=== PATIENT | male | born 1990 ===

== ENCOUNTER 2018-06-01 18:59 | Inpatient (IN) | payer OTHER ==
--- NOTE | 2018-06-01 19:25 | PDOC ---
Rapid Medical Evaluation Time Seen by Provider: 06/01/18 19:22 Medical Evaluation: 06/01/18 19:22 I have performed a brief in-person evaluation of this patient. The patient presents with a chief complaint of: change in behavior x 4-5 days. As per suture gauger with patient patient is sleepy, no speaking, appears sleepy and drooling. States patient complained of headache yesterday. States no fever, chills or coughing noted Pertinent physical exam findings: in no apparent distress sitting with eyes closed, drooling, follow commands ambulatory with slow gait I have ordered the following: labs , iv The patient will proceed to the ED for further evaluation.
--- NOTE | 2018-06-01 20:36 | PDOC ---
Attending Attestation - HPI HPI: 06/01/18 20:37 The patient is a 27 year old male with a PMH of DM and autism, currently living in a [facility]dc presents to the ED unresponsive. As per the sister at bedside, the patient has been unresponsive for the past 4-5 days. Patient complained of a headache yesterday. Patients sister states she went to visit the patient yesterday and reports he also had a loss of appetite. Patient is usually alert and awake, and can have conversations at baseline. Allergies: NKA Past surgical history: None reported. Social history: No reported alcohol, drug or cigarette use. <Benita Mcmillan - Last Filed: 06/01/18 20:36> - Resident Resident Name: Lila Peñaloza - ED Attending Attestation I have performed the following: I have examined & evaluated the patient, The case was reviewed & discussed with the resident, I agree w/resident's findings & plan, Exceptions are as noted - Physicial Exam PE: 06/01/18 20:57 pt somnolent, but arousable to loud voice, nonverbal. head atraumatic. lungs clear bilaterally heart rrr no mrg abd soft nt nd. ext wwp no edema. no calf tendernes. no rash noted. spinal scar. skin warm and dry no rash. nuero sleeping but arousable. moves all four ext spontaneously. - Medical Decision Making 06/01/18 20:35 27 yo male with h/o autism dM here with AMS. pt living in fdc. history per family at side as pt nonverbal. per family he normal more awake and alert. has been complaining of a headache for last few days. no f/c that they are aware of. brought hin food the other day and he had no interest which is different for him. differential: infection such as uti, pna, ich, cva, hyperglycemia or dka, hyperosmolar hyperglycemia. plan labs cultures tox ekg ct head cxr and ua. iv hyration fingerstick at bedside. <Malina Dominguez - Last Filed: 06/01/18 21:01>
[2018-06-01] MEDS ORDERED: SODIUM CHLORIDE 0.9% 1000 ML INFUS.BAG IV ONE (21:01)
[2018-06-01 21:07] LABS: BASO % 0.6 % (0-2.0); EOS % 0.9 % (0-4.5); HEMATOCRIT 39.6 % (35.4-49); HEMOGLOBIN 13.6 GM/dL (11.7-16.9); LYMPH % 9.3 % (8-40); MCH 29.3 pg (25.7-33.7); MCHC 34.3 g/dl (32.0-35.9); MEAN CELL VOLUME 85.5 fl (80-96); MEAN PLT VOLUME 7.1 fl (7.5-11.1); MONO % 8.7 % (3.8-10.2); NEUT % 80.5 % (42.8-82.8); PLATELET COUNT 329 K/MM3 (134-434); RBC 4.63 M/mm3 (4.00-5.60); RDW 14.3 % (11.9-15.9); VENOUS PH 7.37 (7.32-7.42); VENOUS PO2 33.3 mmHg (28-48); WHITE BLOOD COUNT 15.1 K/mm3 (4.0-10.0)
--- NOTE | 2018-06-01 21:32 | PDOC ---
History of Present Illness - General Chief Complaint: Altered Mental Status Stated Complaint: ALTERED MENTAL,BODY PAINS Time Seen by Provider: 06/01/18 19:22 - History of Present Illness Initial Comments: Familia Allen is a 27yo man with a PMH of autism, DM, impulse control disorder who presents from his [place] [facility] with 4-5 days of progressive lethargy and unresponsiveness. His aid states that he has been much less energetic over the past few days, and he appeared to have difficulty swallowing his medication today. Otherwise, she is unaware of any specific symptoms. She does not believe he's had any fevers, chills, vomiting, or diarrhea but is not sure. Per his family, (sister, stepfather, and godmother) present in the ED, Familia is normally awake and responsive. His sister notes that he complained of headache when they were visiting yesterday, and he was only able to answer yes/ no questions rather than being more conversational as usual. She says that they always bring him a burger and chicken nuggets when they visit, but Familia had no interest in his burger yesterday. They are also unaware of any additional symptoms recently, but they do report that he appears significantly different than usual and much more fatigued and unresponsive than yesterday. Past History - Past Medical History Allergies/Adverse Reactions: Allergies Allergy/AdvReac Type Severity Reaction Status Date / Time No Known Allergies Allergy Verified 06/01/18 19:26 COPD: No Psychiatric Problems: Yes - Surgical History Neurologic Surgery: Yes - Suicide/Smoking/Psychosocial Hx Smoking History: Never smoked Review of Systems - Review of Systems Comments:: 06/01/18 21:58 Could not obtain *Physical Exam - Vital Signs Last Vital Signs Temp Pulse Resp BP Pulse Ox 98.4 F 88 16 123/75 98 06/01/18 19:21 06/01/18 19:21 06/01/18 19:21 06/01/18 19:21 06/01/18 19:21 - Physical Exam Comments: General: Moderate distress HEENT: EOMI, dry lips, yellow crusting around b/l nares Cards: RRR, no murmur appreciated Pulm: Comfortable on room ai Abd: Soft, nontender, nondistended Ext: Atraumatic. No LE edema. Moves all extremities Vasc: Extremities WWP. Skin: Normal color, no rashes or lesions Neuro: Sleepy. Arousable to stimuli but immediately sleeps. Nonverbal communication. Tremors in b/l hands. Stands w/ assistance. Moderate Sedation - Procedure Monitoring Vital Signs: Procedure Monitoring Vital Signs Temperature 98.4 F 06/01/18 19:21 Pulse Rate 88 06/01/18 19:21 Respiratory Rate 16 06/01/18 19:21 Blood Pressure 123/75 06/01/18 19:21 O2 Sat by Pulse Oximetry (%) 98 06/01/18 19:21 ED Treatment Course - LABORATORY CBC & Chemistry Diagram: 06/01/18 20:50 06/01/18 20:50 - ADDITIONAL ORDERS Additional order review: Laboratory Results 06/01/18 20:50 VBG pH 7.37 POC VBG pCO2 41.0 POC VBG pO2 33.3 Mixed VBG HCO3 23.2 06/01/18 20:50 RBC 4.63 MCV 85.5 MCHC 34.3 RDW 14.3 MPV 7.1 L Neutrophils % 80.5 Lymphocytes % 9.3 Monocytes % 8.7 Eosinophils % 0.9 Basophils % 0.6 - Medications Given in the ED: ED Medications Discontinued Medications Generic Name Dose Route Start Last Admin Trade Name Freq PRN Reason Stop Dose Admin Sodium Chloride 1,000 ml 06/01/18 21:01 06/01/18 21:12 Normal Saline - IV 06/01/18 21:02 1,000 ml ONCE ONE Administration Medical Decision Making - Medical Decision Making 06/01/18 21:31 Familia Allen is a 27yo man with a PMH of autism, DM, impulse control disorder who presents from his [place] [facility] with 4-5 days of progressive lethargy and unresponsiveness. Per his family, he is normally awake and responsive, but he is lethargic and difficulty to rouse on arrival in the ED. Only known symptom otherwise was the complaint of headache and lack of usual interest in food yesterday evening. - Broad differential. No known fevers, chills, focal infectious symptoms, or fall. No known ingestion. Consider sepsis, head injury, stroke, hyper/ hypoglycemia, DKA or hyperosmolic state, accidental medication overdose (on lithium and depakote) - CBC, chemistry, cultures, lactate, UA, UCx, lithium level, depakote level - IV placed in L AC by Dr Dominguez. Labs sent. 06/01/18 21:54 - Took patient to CT - Possible rigors observed (vs chronic tremors reported by family) 06/01/18 23:23 - Labs notable for WBC 15. UA appears negative - CT reviewed. No obvious abnormalities. Read pending - Empiric antibiotics ordered by Dr Dominguez. Cultures pending. - Microblog sent to hospitalist team for admission for additional management and workup. 06/02/18 00:42 - Second microblog sent - Sister left ED, requested to be called for any updates. Keri Allen, phone [phone] 06/02/18 00:55 - Spoke to Dr Pizano. Will admit to med/surg Seen and discussed with Dr Dominguez. Lila Peñaloza PGY1 *DC/Admit/Observation/Transfer Diagnosis at time of Disposition: Altered mental status - Discharge Dispostion Decision to Admit order: Yes - Referrals - Patient Instructions - Post Discharge Activity
[2018-06-01 22:01] LABS: PROTHROMBIN TIME (PATIENT) 11.8 SEC (9.7-13.0)
[2018-06-01 22:03] LABS: ACTIVATED PTT 24.8 SECONDS (25.2-36.5); ALK PHOS 114 U/L (45-117); ANION GAP 4 MMOL/L (8-16); BILIRUBIN,TOTAL 0.3 mg/dL (0.2-1); BLOOD UREA NITROGEN 23 mg/dL (7-18); CALCIUM 9.8 mg/dL (8.5-10.1); CHLORIDE 105 mmol/L (98-107); CO2 25 mmol/L (21-32); CREATININE 1.7 mg/dL (0.55-1.3); GLUCOSE,RANDOM 89 mg/dL (74-106); SGOT/AST 20 U/L (15-37); SGPT/ALT 31 U/L (13-61); SODIUM 135 mmol/L (136-145)
[2018-06-01 22:12] LABS: ACETONE SERUM NEGATIVE (NEGATIVE)
[2018-06-01] MEDS ORDERED: SODIUM CHLORIDE 0.9% 500 ML INFUS.BAG IV ONE (22:18)
[2018-06-01 22:39] LABS: URINE APPEARANCE CLEAR; URINE BILIRUBIN NEGATIVE (<2.0 mg/dL); URINE COLOR LTYELLOW; URINE GLUCOSE (UA) NEGATIVE (NEGATIVE); URINE KETONE NEGATIVE (NEGATIVE); URINE LEUK ESTERASE NEGATIVE (NEGATIVE); URINE NITRITE NEGATIVE (NEGATIVE); URINE PROTEIN 2+ (NEGATIVE); URINE UROBILINOGEN NEGATIVE mg/dL (0.2-1.0)
[2018-06-01 22:53] LABS: COCAINE, UR NEGATIVE ng/ml (CUTOFF=300); METHADONE, UR NEGATIVE ng/ml (CUTOFF=300); OPIATES, URI NEGATIVE ng/ml (CUTOFF=300); PHENCYCLIDINE,URINE NEGATIVE ng/ml (CUTOFF=25); URINE AMPHETAMINES NEGATIVE ng/ml (CUTOFF=500); URINE BARBITURATES NEGATIVE ng/ml (CUTOFF=200); URINE BENZODIAZEPINES NEGATIVE ng/ml (CUTOFF=200)
[2018-06-01] MEDS ORDERED: VANCOMYCIN 1 GM in D5W (PRE-DOCKED) 1,000 MG/250 ML IVPB ONE (22:55)
[2018-06-01] MEDS ORDERED: CEFTRIAXONE 2,000 MG in DEXTROSE 5%-WATER - 50 ML IVPB ONE (22:55)
[2018-06-01] MEDS ORDERED: CEFTRIAXONE 2 GM/100 ML BAG IVPB ONE (23:09)
[2018-06-01] MEDS ORDERED: VANCOMYCIN 1 GRAM (PRE-DOCKED) 1,000 MG/250 ML BAG IVPB ONE (23:09)
--- NOTE | 2018-06-02 01:26 | PN ---
Teaching Attending Note Name of Resident: Pravin Pizano ATTENDING PHYSICIAN STATEMENT I saw and evaluated the patient. I reviewed the resident's note and discussed the case with the resident. I agree with the resident's findings and plan as documented. SUBJECTIVE: Patient is a 27 year old man with a PMH of autism, scoliosis, surgery for scoliosis with vertebral hardware, DM, impulse control disorder who [facility]5 days of progressive lethargy and unresponsiveness. His aid states that he has been much less energetic over the past few days, and he appeared to have difficulty swallowing his medication today. Otherwise, she is unaware of any specific symptoms. She does not believe he's had any fevers, chills, vomiting, or diarrhea but is not sure. Per his family, (sister, stepfather, and godmother) he is normally awake and responsive. His sister notes that he complained of headache when they were visiting yesterday, and he was only able to answer yes/no questions rather than being more conversational as usual. She says that they always bring him a burger and chicken nuggets when they visit, but Familia had no interest in his burger yesterday. They are also unaware of any additional symptoms recently, but they do report that he appears significantly different than usual and much more fatigued and unresponsive than yesterday. OBJECTIVE: Lethargic and weak Vital Signs Period Temp Pulse Resp BP Sys/Schwartz Pulse Ox Last 24 Hr 97.9 F-98.4 F 73-88 16-18 122-123/75-82 98-100 HEENT: No Jaundice, eye redness or discharge, PERRLA, EOMI. Normocephalic, atraumatic. External ears are normal and hearing is grossly intact. No nasal discharge. Neck: Supple, nontender. No palpable adenopathy or thyromegaly. No JVD Chest: Good effort. Clear to auscultation and percussion. Heart: Regular. No S3, rub or murmur Abdomen: Not distended, soft, nontender and no HSM. No rebound or guarding. Normoactive bowel sounds. Ext: Peripheral pulses intact. No leg edema. Skin: Warm and dry. No petechiae, rash or ecchymosis. Neuro: Lethargic. Able to follow commands sluggishly. Oriented to person. CN 2- 12 grossly intact. Sensation grossly intact in all four extremities and DTR are symmetric. Abnormal Lab Results 06/01/18 06/01/18 06/01/18 20:50 20:50 20:50 WBC 15.1 H MPV 7.1 L Absolute Neuts (auto) 12.2 H PTT (Actin FS) 24.8 L Sodium 135 L Anion Gap 4 L BUN 23 H Creatinine 1.7 H Ur Specific [place] Urine Protein Valproic Acid 06/01/18 06/01/18 20:50 22:26 WBC MPV Absolute Neuts (auto) PTT (Actin FS) Sodium Anion Gap BUN Creatinine Ur Specific [place] 1.006 L Urine Protein 2+ H Valproic Acid 27.5 L ASSESSMENT AND PLAN: 1. Altered Mental Status - Etiology unclear. No acute abnormality on Head CT and on CXR. In view of leukocytosis, he needs a lumbar puncture to exclude meningitis. He has vertebral hardware, so will consult IR for lumbar puncture. Will empirically treat for meningitis with vancomycin and rocephin. Also, patient is on a lot psychoactive drugs and drug interaction/adverse effects may be a contributing factor to his AMS. Will hold some of his psychoactive drugs and do neurochecks and implement seizure precautions. [place] level pending. Consult neurology and ID. Gentle hydration with IV NS. 2. DM Reportedly used to be on metformin. Will implement sliding scale insulin regimen. Provide comprehensive diabetes care with patient teaching and counseling about the importance of adherence to prescribed diabetes regimen, euglycemia, eye care and foot care. 3. CKD? - Has proteinuria and isosthenuria. Check CPK. Will hydrate gently and avoid nephrotoxic agents such as NSAIDS, aminoglycosides, contrast dyes and certain Alternative medicine products. 4. Obesity - Will provide patient all the necessary assistance, counseling and positive reinforcement to facilitate weight loss. Consult primer inserting machine adjuster. 5. DVT prophylaxis - Heparin 5000u sq tid. 6. Advance directives - Full code
--- NOTE | 2018-06-02 01:54 | HP ---
CHIEF COMPLAINT: Lethargy PCP: @[facility] HISTORY OF PRESENT ILLNESS: The patient is a 27 yo m w/ PMH DM, Autism, behavior disorders who [facility] a [facility] due to 5 days of lethargy. The patient is unable to provide history, which was collected from his aide at bedside and the EMR. For the past 5 days, the patient has been more sleeping and less interactive. In addition to this, he has had a decrease appetite, decreased activity and difficulty swallowing his medications. These symptoms have become progressively worse and has been associated with LE weakness, which prompted his aide and his family to bring him to the ED for evaluation. Patient is bilingual (Malay, Tamaz[place]) and additional history may have been obtained by family. Per family, the patient also c/o headache for the past few days. The patient's aide denies fevers, chills, pain, rash or sick contacts in the home. Of note, the patient's neurologist (@[facility]) increased his Depakote from 250 BID to 500BID 1 month ago due to inability to sleep. Patient's Aides administer his medications and they endorse compliance. Contact information for patient's sister: Keri Allen [phone], ER course was notable for: (1) WBC 15.1 w/ elevated ANC (2) BUN 23, Cr. 1.7 (3) afebrile rectally (4) CT head negative Recent Travel: none PAST MEDICAL HISTORY: see HPI PAST SURGICAL HISTORY: none Social History: Smoking: denies Alcohol: denies Drugs: denies Family History: non-contributory Allergies No Known Allergies Allergy (Verified 06/01/18 19:26) HOME MEDICATIONS: REVIEW OF SYSTEMS unable to obtain PHYSICAL EXAMINATION Vital Signs - 24 hr 06/01/18 06/01/18 19:21 22:35 Temperature 98.4 F 97.9 F Pulse Rate 88 Pulse Rate [ 73 Apical] Respiratory 16 18 Rate Blood Pressure 123/75 Blood Pressure 122/82 [Right Arm] O2 Sat by Pulse 98 100 Oximetry (%) GENERAL: Patient lethargic, drowsy, rousable to verbal stimuli and easily rousable to physical stimuli. Patient able to follow commands in limited fashion and withdraws from pain. HEAD: Normal with no signs of trauma. EYES: Pupils equal, round and reactive to light. EARS, NOSE, THROAT: nares patent, oropharynx clear without exudates. Moist mucous membranes. Nasal passages crusted with mucus NECK: Normal range of motion, supple without lymphadenopathy, JVD, or masses. No nuchal rigidity felt, Brudzinsky sign negative, no neck stiffness. LUNGS: Breath sounds equal, clear to auscultation bilaterally. No wheezes, and no crackles. No accessory muscle use. HEART: Regular rate and rhythm, normal S1 and S2 without murmur, rub or gallop. ABDOMEN: Soft, nontender, not distended, normoactive bowel sounds, no guarding, no rebound, no masses. LOWER EXTREMITIES: 2+ pulses, warm, well-perfused. No calf tenderness. No peripheral edema. NEUROLOGICAL: unable to perform neuro exam 2/ patient status SKIN: Warm, dry, normal turgor, no rashes or lesions noted, normal capillary refill. Laboratory Results - last 24 hr 06/01/18 06/01/18 06/01/18 20:50 20:50 20:50 WBC 15.1 H RBC 4.63 Hgb 13.6 Hct 39.6 MCV 85.5 MCH 29.3 MCHC 34.3 RDW 14.3 Plt Count 329 MPV 7.1 L Absolute Neuts (auto) 12.2 H Neutrophils % 80.5 Lymphocytes % 9.3 Monocytes % 8.7 Eosinophils % 0.9 Basophils % 0.6 Nucleated RBC % 0 PT with INR INR PTT (Actin FS) VBG pH 7.37 POC VBG pCO2 41.0 POC VBG pO2 33.3 Mixed VBG HCO3 23.2 Sodium 135 L Potassium 5.0 Chloride 105 Carbon Dioxide 25 Anion Gap 4 L BUN 23 H Creatinine 1.7 H Creat Clearance w eGFR 47.89 Random Glucose 89 Specific [place] Lactic Acid Calcium 9.8 Total Bilirubin 0.3 AST 20 ALT 31 Alkaline Phosphatase 114 Total Protein 7.0 Albumin 4.0 Urine Color Urine Appearance Urine pH Ur Specific [place] Urine Protein Urine Glucose (UA) Urine Ketones Urine Blood Urine Nitrite Urine Bilirubin Urine Urobilinogen Ur Leukocyte Esterase Urine WBC (Auto) Urine RBC (Auto) Urine Butalbital Ur Butalbital Confirm Opiates Screen Urine Opiates Screen Meperidine Urine Normeperidine U Normeperidine GC/MS Urine Codeine U Codeine Confrm GC/MS Urine Morphine Morphine Confirm GC/MS Urine Hydrocodone Ur Hydrocodone (GC/MS) Urine Oxycodone Ur Oxycodone GC/MS Oxymorphone Confirm Urine Oxymorphone U Oxycodone/Oxymorphon Methadone Screen Ur Methadone Ur Methadone Confirm Ur Hydromorphone Ur Hydromorphone (GC/MS) Urine Propoxyphene U Propoxyphene/M GC/MS Barbiturate Screen Ur Barbiturates Screen Urine Barbiturates Valproic Acid Phencyclidine Screen Ur Phencyclidine (PCP) Ur PCP Confirm (GC/MS) Amphetamines Amphetamines Grp GC/MS Ur Amphetamines Screen Urine Amphetamine Ur Amphetamines, Quant Methamphetamine Methamphetamine GC/MS MDMA (Ecstasy) Screen Urine Amobarbital Ur Amobarbital GC/MS Urine Pentobarbital U Pentobarbital GC/MS Urine Phenobarbital U Phenobarbital GC/MS Urine Secobarbital U Secobarbital GC/MS Urine Alprazolam U OH-Alprazolam GC/MS Benzodiazepines Screen U Benzodiazepines Scrn Urine Clonazepam U 7-Amino Clonazep GC/MS Ur Nordiazepam Ur Nordiazepam GC/MS Flurazepam Flurazepam Confirm Lorazepam Urine Lorazepam Ur Oxazepam U Oxazepam Confm GC/MS Urine Temazepam Ur Temazepam (GC/MS) Urine Triazolam Ur Triazolam (GC/MS) Meperidine (GC/MS) Ur Meperidine Cocaine Screen Cocaine & Metabolite Urine Cocaine Benzoylecgonine Cannabinoids Urine Cannabinoids U Marijuana (THC) Screen Urine Marijuana (THC) Ethyl Alc Confirm Acetone, Qual Negative Influenza A (Rapid) Influenza B (Rapid) 06/01/18 06/01/18 06/01/18 20:50 20:50 20:50 WBC RBC Hgb Hct MCV MCH MCHC RDW Plt Count MPV Absolute Neuts (auto) Neutrophils % Lymphocytes % Monocytes % Eosinophils % Basophils % Nucleated RBC % PT with INR 11.80 INR 1.00 PTT (Actin FS) 24.8 L VBG pH POC VBG pCO2 POC VBG pO2 Mixed VBG HCO3 Sodium Potassium Chloride Carbon Dioxide Anion Gap BUN Creatinine Creat Clearance w eGFR Random Glucose Specific [place] Lactic Acid 0.8 Calcium Total Bilirubin AST ALT Alkaline Phosphatase Total Protein Albumin Urine Color Urine Appearance Urine pH Ur Specific [place] Urine Protein Urine Glucose (UA) Urine Ketones Urine Blood Urine Nitrite Urine Bilirubin Urine Urobilinogen Ur Leukocyte Esterase Urine WBC (Auto) Urine RBC (Auto) Urine Butalbital Ur Butalbital Confirm Opiates Screen Urine Opiates Screen Meperidine Urine Normeperidine U Normeperidine GC/MS Urine Codeine U Codeine Confrm GC/MS Urine Morphine Morphine Confirm GC/MS Urine Hydrocodone Ur Hydrocodone (GC/MS) Urine Oxycodone Ur Oxycodone GC/MS Oxymorphone Confirm Urine Oxymorphone U Oxycodone/Oxymorphon Methadone Screen Ur Methadone Ur Methadone Confirm Ur Hydromorphone Ur Hydromorphone (GC/MS) Urine Propoxyphene U Propoxyphene/M GC/MS Barbiturate Screen Ur Barbiturates Screen Urine Barbiturates Valproic Acid 27.5 L Phencyclidine Screen Ur Phencyclidine (PCP) Ur PCP Confirm (GC/MS) Amphetamines Amphetamines Grp GC/MS Ur Amphetamines Screen Urine Amphetamine Ur Amphetamines, Quant Methamphetamine Methamphetamine GC/MS MDMA (Ecstasy) Screen Urine Amobarbital Ur Amobarbital GC/MS Urine Pentobarbital U Pentobarbital GC/MS Urine Phenobarbital U Phenobarbital GC/MS Urine Secobarbital U Secobarbital GC/MS Urine Alprazolam U OH-Alprazolam GC/MS Benzodiazepines Screen U Benzodiazepines Scrn Urine Clonazepam U 7-Amino Clonazep GC/MS Ur Nordiazepam Ur Nordiazepam GC/MS Flurazepam Flurazepam Confirm Lorazepam Urine Lorazepam Ur Oxazepam U Oxazepam Confm GC/MS Urine Temazepam Ur Temazepam (GC/MS) Urine Triazolam Ur Triazolam (GC/MS) Meperidine (GC/MS) Ur Meperidine Cocaine Screen Cocaine & Metabolite Urine Cocaine Benzoylecgonine Cannabinoids Urine Cannabinoids U Marijuana (THC) Screen Urine Marijuana (THC) Ethyl Alc Confirm Acetone, Qual Influenza A (Rapid) Influenza B (Rapid) 06/01/18 06/01/18 06/01/18 22:11 22:26 22:26 WBC RBC Hgb Hct MCV MCH MCHC RDW Plt Count MPV Absolute Neuts (auto) Neutrophils % Lymphocytes % Monocytes % Eosinophils % Basophils % Nucleated RBC % PT with INR INR PTT (Actin FS) VBG pH POC VBG pCO2 POC VBG pO2 Mixed VBG HCO3 Sodium Potassium Chloride Carbon Dioxide Anion Gap BUN Creatinine Cancelled Creat Clearance w eGFR Random Glucose Specific [place] Cancelled Lactic Acid Calcium Total Bilirubin AST ALT Alkaline Phosphatase Total Protein Albumin Urine Color Ltyellow Urine Appearance Clear Urine pH 7.0 Ur Specific [place] 1.006 L Urine Protein 2+ H Urine Glucose (UA) Negative Urine Ketones Negative Urine Blood Negative Urine Nitrite Negative Urine Bilirubin Negative Urine Urobilinogen Negative Ur Leukocyte Esterase Negative Urine WBC (Auto) 1 Urine RBC (Auto) None Urine Butalbital Cancelled Ur Butalbital Confirm Cancelled Opiates Screen Urine Opiates Screen Cancelled Meperidine Cancelled Urine Normeperidine Cancelled U Normeperidine GC/MS Cancelled Urine Codeine Cancelled U Codeine Confrm GC/MS Cancelled Urine Morphine Cancelled Morphine Confirm GC/MS Cancelled Urine Hydrocodone Cancelled Ur Hydrocodone (GC/MS) Cancelled Urine Oxycodone Cancelled Ur Oxycodone GC/MS Cancelled Oxymorphone Confirm Cancelled Urine Oxymorphone Cancelled U Oxycodone/Oxymorphon Cancelled Methadone Screen Ur Methadone Cancelled Ur Methadone Confirm Cancelled Ur Hydromorphone Cancelled Ur Hydromorphone (GC/MS) Cancelled Urine Propoxyphene Cancelled U Propoxyphene/M GC/MS Cancelled Barbiturate Screen Ur Barbiturates Screen Cancelled Urine Barbiturates Cancelled Valproic Acid Phencyclidine Screen Ur Phencyclidine (PCP) Cancelled Ur PCP Confirm (GC/MS) Cancelled Amphetamines Cancelled Amphetamines Grp GC/MS Cancelled Ur Amphetamines Screen Urine Amphetamine Cancelled Ur Amphetamines, Quant Cancelled Methamphetamine Cancelled Methamphetamine GC/MS Cancelled MDMA (Ecstasy) Screen Urine Amobarbital Cancelled Ur Amobarbital GC/MS Cancelled Urine Pentobarbital Cancelled U Pentobarbital GC/MS Cancelled Urine Phenobarbital Cancelled U Phenobarbital GC/MS Cancelled Urine Secobarbital Cancelled U Secobarbital GC/MS Cancelled Urine Alprazolam Cancelled U OH-Alprazolam GC/MS Cancelled Benzodiazepines Screen U Benzodiazepines Scrn Cancelled Urine Clonazepam Cancelled U 7-Amino Clonazep GC/MS Cancelled Ur Nordiazepam Cancelled Ur Nordiazepam GC/MS Cancelled Flurazepam Cancelled Flurazepam Confirm Cancelled Lorazepam Cancelled Urine Lorazepam Cancelled Ur Oxazepam Cancelled U Oxazepam Confm GC/MS Cancelled Urine Temazepam Cancelled Ur Temazepam (GC/MS) Cancelled Urine Triazolam Cancelled Ur Triazolam (GC/MS) Cancelled Meperidine (GC/MS) Cancelled Ur Meperidine Cancelled Cocaine Screen Cocaine & Metabolite Cancelled Urine Cocaine Cancelled Benzoylecgonine Cancelled Cannabinoids Cancelled Urine Cannabinoids Cancelled U Marijuana (THC) Screen Urine Marijuana (THC) Cancelled Ethyl Alc Confirm Cancelled Acetone, Qual Influenza A (Rapid) Negative Influenza B (Rapid) Negative 06/01/18 22:38 WBC RBC Hgb Hct MCV MCH MCHC RDW Plt Count MPV Absolute Neuts (auto) Neutrophils % Lymphocytes % Monocytes % Eosinophils % Basophils % Nucleated RBC % PT with INR INR PTT (Actin FS) VBG pH POC VBG pCO2 POC VBG pO2 Mixed VBG HCO3 Sodium Potassium Chloride Carbon Dioxide Anion Gap BUN Creatinine Creat Clearance w eGFR Random Glucose Specific [place] Lactic Acid Calcium Total Bilirubin AST ALT Alkaline Phosphatase Total Protein Albumin Urine Color Urine Appearance Urine pH Ur Specific [place] Urine Protein Urine Glucose (UA) Urine Ketones Urine Blood Urine Nitrite Urine Bilirubin Urine Urobilinogen Ur Leukocyte Esterase Urine WBC (Auto) Urine RBC (Auto) Urine Butalbital Ur Butalbital Confirm Opiates Screen Negative Urine Opiates Screen Meperidine Urine Normeperidine U Normeperidine GC/MS Urine Codeine U Codeine Confrm GC/MS Urine Morphine Morphine Confirm GC/MS Urine Hydrocodone Ur Hydrocodone (GC/MS) Urine Oxycodone Ur Oxycodone GC/MS Oxymorphone Confirm Urine Oxymorphone U Oxycodone/Oxymorphon Methadone Screen Negative Ur Methadone Ur Methadone Confirm Ur Hydromorphone Ur Hydromorphone (GC/MS) Urine Propoxyphene U Propoxyphene/M GC/MS Barbiturate Screen Negative Ur Barbiturates Screen Urine Barbiturates Valproic Acid Phencyclidine Screen Negative Ur Phencyclidine (PCP) Ur PCP Confirm (GC/MS) Amphetamines Amphetamines Grp GC/MS Ur Amphetamines Screen Negative Urine Amphetamine Ur Amphetamines, Quant Methamphetamine Methamphetamine GC/MS MDMA (Ecstasy) Screen Negative Urine Amobarbital Ur Amobarbital GC/MS Urine Pentobarbital U Pentobarbital GC/MS Urine Phenobarbital U Phenobarbital GC/MS Urine Secobarbital U Secobarbital GC/MS Urine Alprazolam U OH-Alprazolam GC/MS Benzodiazepines Screen Negative U Benzodiazepines Scrn Urine Clonazepam U 7-Amino Clonazep GC/MS Ur Nordiazepam Ur Nordiazepam GC/MS Flurazepam Flurazepam Confirm Lorazepam Urine Lorazepam Ur Oxazepam U Oxazepam Confm GC/MS Urine Temazepam Ur Temazepam (GC/MS) Urine Triazolam Ur Triazolam (GC/MS) Meperidine (GC/MS) Ur Meperidine Cocaine Screen Negative Cocaine & Metabolite Urine Cocaine Benzoylecgonine Cannabinoids Urine Cannabinoids U Marijuana (THC) Screen Negative Urine Marijuana (THC) Ethyl Alc Confirm Acetone, Qual Influenza A (Rapid) Influenza B (Rapid) ASSESSMENT/PLAN: The patient is a 27 yo m w/ PMH NIDDM, autism, behavior disorder is brought into the ED from a [facility] due to lethargy and trouble swallowing. #Lethargy, decreased appetite, leukocytosis and trouble swallowing possibly 2/2 to polypharmacy, r/o meningitis -patient on several psychoactive drugs -depakote lvl low in ED, lithium lvl pending -Utox negative -LP unable to be performed 2/2 hardware in the spine from scoliosis sx -consider IR consult for LP -discussed the case w/ Dr. Valadez (neuro): meningitis less likely, polypharmacy more likely -ID consult (Dr. Bowman) placed -s/p 2g ceftriaxone and 1g vanco in ED -c/w ceftriaxone 2g daily -will defer further vanco dosing to ID -add on CPK -holding all home meds except for anticonvulsants; patient has never had a seizure #elevated creatinine 2/2 combo of NAZ/CKD -combo of dilute urine, proteinuria and elevated creatinine suggestive of CKD -no baseline Cr. available -NS @ 50 overnight -trend creatinine daily #NIDDM -BGM ACHS -ISS ACHS #FEN -NS @50 -lytes wnl -NPO while lethargic #Prophy -SCDs -holding chemoprophylaxis in event IR wants to perform procedure #Dispo -admit med surg -medications verified with [facility] paperwork Visit type - Emergency Visit Emergency Visit: Yes ED Registration Date: 06/02/18 Care time: The patient presented to the Emergency Department on the above date and was hospitalized for further evaluation of their emergent condition. - New Patient This patient is new to me today: Yes Date on this admission: 06/02/18 - Critical Care Critical Care patient: No
[2018-06-02] MEDS ORDERED: SODIUM CHLORIDE 1,000 ML IV SCH (02:00)
[2018-06-02 05:43] LABS: BASO % 0.5 % (0-2.0); EOS % 1.4 % (0-4.5); HEMATOCRIT 37.2 % (35.4-49); HEMOGLOBIN 12.4 GM/dL (11.7-16.9); LYMPH % 9.5 % (8-40); MCHC 33.4 g/dl (32.0-35.9); MEAN CELL VOLUME 86.9 fl (80-96); MEAN PLT VOLUME 7.1 fl (7.5-11.1); MONO % 10.9 % (3.8-10.2); NEUT % 77.7 % (42.8-82.8); PLATELET COUNT 290 K/MM3 (134-434); RBC 4.28 M/mm3 (4.00-5.60); RDW 14.4 % (11.9-15.9); WHITE BLOOD COUNT 13.6 K/mm3 (4.0-10.0)
[2018-06-02 06:03] LABS: INR 0.99 (0.83-1.09); PROTHROMBIN TIME (PATIENT) 11.7 SEC (9.7-13.0)
[2018-06-02 06:05] LABS: ACTIVATED PTT 28.2 SECONDS (25.2-36.5)
[2018-06-02 06:12] LABS: ALBUMIN 3.2 g/dl (3.4-5.0); ALK PHOS 94 U/L (45-117); ANION GAP 2 MMOL/L (8-16); BILIRUBIN,TOTAL 0.4 mg/dL (0.2-1); BLOOD UREA NITROGEN 21 mg/dL (7-18); CALCIUM 8.8 mg/dL (8.5-10.1); CHLORIDE 113 mmol/L (98-107); CO2 25 mmol/L (21-32); CREATININE 1.5 mg/dL (0.55-1.3); GLUCOSE,RANDOM 95 mg/dL (74-106); MAGNESIUM 2.7 mg/dL (1.8-2.4); PHOSPHOROUS 4.2 mg/dL (2.5-4.9); SGOT/AST 16 U/L (15-37); SGPT/ALT 23 U/L (13-61); SODIUM 140 mmol/L (136-145); TOT PROT 5.8 g/dl (6.4-8.2)
[2018-06-02] MEDS: INSULIN SLIDING SCALE (NOVOLOG) 1 VIAL SQ SCH ×4 (06:17→22:42)
[2018-06-02] MEDS ORDERED: DIVALPROEX SODIUM 500 MG TABLET E.C. ONE (09:06)
[2018-06-02] MEDS ORDERED: CEFTRIAXONE 2 GM/100 ML BAG IVPB ONE (09:07)
[2018-06-02] MEDS: CEFTRIAXONE 2 GM in DEXTROSE 5%-WATER 100 ML IVPB SCH (09:21)
[2018-06-02] MEDS: DIVALPROEX SODIUM 500 MG TABLET E.C. PO SCH ×2 (09:21→21:53)
[2018-06-02] MEDS ORDERED: TOPIRAMATE 100 MG TABLET PO SCH (10:00)
--- NOTE | 2018-06-02 11:20 | PN ---
Progress Note (short form) - Note Progress Note: ID CONSULT DICTATED 27 Y/O MALE PMH AUTISM ADMITTED WITH ALTERED MENTAL STATUS NOTED TO HAVE LEUKOCYTOSIS ? SOURCE AWAIT SEPSIS WORKUP AGREE WITH NEURO EVAL AND LP
--- NOTE | 2018-06-02 11:47 | CONS ---
DATE OF CONSULTATION: DATE OF DICTATION: 06/02/2018 HISTORY: The patient is a 27-year-old male with a history of autism who is evaluated for altered mental status. History was obtained from the chart as well as family members present at the time of the examination. [facility] in a [facility]. They report that over the past 4-5 days he has had increasing lethargy and somnolence. He had decreased oral intake. At one point there was a report that he complained of headache. He was brought to the emergency room where the patient was noted to be confused. He was afebrile; however, white blood cell count was elevated at 15,000. Cultures were obtained. He was empirically treated with ceftriaxone and vancomycin. Caretakers report that his mental status is a departure from his baseline. He had no focal complaint. No reports of photophobia or neck rigidity. No reported fever or chills. No reports of labored breathing, cough, sputum production, vomiting, diarrhea, or grossly purulent urine. He does have a rash on the left side of his face for which he was seen by airplane pilot helper and prescribed doxycycline and topical medication. PAST MEDICAL HISTORY: Positive for diabetes mellitus, autism, scoliosis. PAST SURGICAL HISTORY: Status post spinal surgery with Mccauley rods. ALLERGIES: No known allergies. MEDICATIONS: Include Depakote, Topamax, Norvasc. SOCIAL HISTORY: He resides in a [facility]. He is normally awake, alert, conversant, ambulatory. No active tobacco or alcohol use. No known risk factors for HIV. SYSTEMS REVIEW: Neurologic: As per HPI. Cardiac: Negative chest pain or palpitations. Respiratory: Negative cough or sputum production. Gastrointestinal: Negative vomiting or diarrhea. Genitourinary: Negative for urinary tract infection. LABORATORY DATA: White count 15.1, hematocrit 37.2, platelet count 290, BUN 21, creatinine 1.5. Liver enzymes normal. Urinalysis: 1 white cell. Influenza swab negative. Toxicology screen negative. CAT scan of the head negative for acute infarct or bleed. Blood and urine cultures are pending. PHYSICAL EXAMINATION: General: On examination, he is awake; however, he is confused. Exam is limited. Vital Signs: Temperature 98.1, blood pressure 126/97, pulse 85 and regular, respirations 20 per minute. Skin: There is a papular rash present on the left side of the face, forehead, and mcdonald area. HEENT: Sclerae anicteric. Oropharynx, negative injection. Neck: Supple. No palpable adenopathy. Heart: S1, S2. Lungs: Grossly clear. Abdomen: Obese, soft, nontender. Extremities: Negative for edema. Skin: No rashes noted. IMPRESSION: A 27-year-old male with a history of autism admitted with altered mental status noted to have elevated white blood cell count. PLAN: Etiology of altered mentation and leukocytosis not clear. Initial sepsis workup unrevealing. Agree with Neurology evaluation and LP in light of altered mentation. Thank you for the kind referral. PAUL CHONG M.D. [id number]
[2018-06-02 13:03] VITALS: BMI 31.6
--- NOTE | 2018-06-02 13:53 | PN ---
Physical Exam: SUBJECTIVE: Patient seen and examined at bedside this morning. He is minimally responsive. He endorses headache, and chills. Per his health aide at bedside, his appetite has been severely diminished. OBJECTIVE: Vital Signs Period Temp Pulse Resp BP Sys/Schwartz Pulse Ox Last 24 Hr 97.9 F-98.5 F 64-88 16-20 116-143/62-97 95-100 GENERAL: The patient is sleepy, shivering, minimally able to follow commands. HEAD: Normocephalic, atraumatic. EYES: PERRL, extraocular movements intact, sclera anicteric. ENT: Oropharynx clear without exudates, dry mucous membranes. NECK: Supple without lymphadenopathy LUNGS: Breath sounds equal, clear to auscultation bilaterally, no wheezes, no crackles, no accessory muscle use. HEART: Regular rate and rhythm, S1, S2 without murmur, rub or gallop. ABDOMEN: Obese. Soft, nontender to light and deep palpation, nondistended. Normoactive bowel sounds, X4 quadrants. No guarding, no rebound tenderness. EXTREMITIES: 2+ radial, dorsalis pedis pulses bilaterally. Warm, well-perfused, no lower extremity edema bilaterally. NEUROLOGICAL: Patient freely moves all 4 extremities, strength 5/5 bilateral upper and lower extremities. No gross focal deficits. SKIN: Warm, dry. Laboratory Results - last 24 hr 06/01/18 06/01/18 06/01/18 22:11 22:26 22:26 WBC RBC Hgb Hct MCV MCH MCHC RDW Plt Count MPV Absolute Neuts (auto) Neutrophils % Lymphocytes % Monocytes % Eosinophils % Basophils % Nucleated RBC % PT with INR INR PTT (Actin FS) VBG pH POC VBG pCO2 POC VBG pO2 Mixed VBG HCO3 Sodium Potassium Chloride Carbon Dioxide Anion Gap BUN Creatinine Cancelled Creat Clearance w eGFR POC Glucometer Random Glucose Specific Parrish Cancelled Lactic Acid Calcium Phosphorus Magnesium Total Bilirubin AST ALT Alkaline Phosphatase Creatine Kinase Creatine Kinase Index CK-MB (CK-2) Total Protein Albumin Urine Color Ltyellow Urine Appearance Clear Urine pH 7.0 Ur Specific Parrish 1.006 L Urine Protein 2+ H Urine Glucose (UA) Negative Urine Ketones Negative Urine Blood Negative Urine Nitrite Negative Urine Bilirubin Negative Urine Urobilinogen Negative Ur Leukocyte Esterase Negative Urine WBC (Auto) 1 Urine RBC (Auto) None Urine Butalbital Cancelled Ur Butalbital Confirm Cancelled Opiates Screen Urine Opiates Screen Cancelled Meperidine Cancelled Urine Normeperidine Cancelled U Normeperidine GC/MS Cancelled Urine Codeine Cancelled U Codeine Confrm GC/MS Cancelled Urine Morphine Cancelled Morphine Confirm GC/MS Cancelled Urine Hydrocodone Cancelled Ur Hydrocodone (GC/MS) Cancelled Urine Oxycodone Cancelled Ur Oxycodone GC/MS Cancelled Oxymorphone Confirm Cancelled Urine Oxymorphone Cancelled U Oxycodone/Oxymorphon Cancelled Methadone Screen Ur Methadone Cancelled Ur Methadone Confirm Cancelled Ur Hydromorphone Cancelled Ur Hydromorphone (GC/MS) Cancelled Urine Propoxyphene Cancelled U Propoxyphene/M GC/MS Cancelled Barbiturate Screen Ur Barbiturates Screen Cancelled Urine Barbiturates Cancelled Valproic Acid Phencyclidine Screen Ur Phencyclidine (PCP) Cancelled Ur PCP Confirm (GC/MS) Cancelled Amphetamines Cancelled Amphetamines Grp GC/MS Cancelled Ur Amphetamines Screen Urine Amphetamine Cancelled Ur Amphetamines, Quant Cancelled Methamphetamine Cancelled Methamphetamine GC/MS Cancelled MDMA (Ecstasy) Screen Urine Amobarbital Cancelled Ur Amobarbital GC/MS Cancelled Urine Pentobarbital Cancelled U Pentobarbital GC/MS Cancelled Urine Phenobarbital Cancelled U Phenobarbital GC/MS Cancelled Urine Secobarbital Cancelled U Secobarbital GC/MS Cancelled Urine Alprazolam Cancelled U OH-Alprazolam GC/MS Cancelled Benzodiazepines Screen U Benzodiazepines Scrn Cancelled Urine Clonazepam Cancelled U 7-Amino Clonazep GC/MS Cancelled Ur Nordiazepam Cancelled Ur Nordiazepam GC/MS Cancelled Flurazepam Cancelled Flurazepam Confirm Cancelled Lorazepam Cancelled Urine Lorazepam Cancelled Ur Oxazepam Cancelled U Oxazepam Confm GC/MS Cancelled Urine Temazepam Cancelled Ur Temazepam (GC/MS) Cancelled Urine Triazolam Cancelled Ur Triazolam (GC/MS) Cancelled Meperidine (GC/MS) Cancelled Ur Meperidine Cancelled Cocaine Screen Cocaine & Metabolite Cancelled Urine Cocaine Cancelled Benzoylecgonine Cancelled Cannabinoids Cancelled Urine Cannabinoids Cancelled U Marijuana (THC) Screen Urine Marijuana (THC) Cancelled Ethyl Alc Confirm Cancelled Acetone, Qual Influenza A (Rapid) Negative Influenza B (Rapid) Negative 06/01/18 06/02/18 06/02/18 22:38 03:19 03:19 WBC RBC Hgb Hct MCV MCH MCHC RDW Plt Count MPV Absolute Neuts (auto) Neutrophils % Lymphocytes % Monocytes % Eosinophils % Basophils % Nucleated RBC % PT with INR INR PTT (Actin FS) VBG pH POC VBG pCO2 POC VBG pO2 Mixed VBG HCO3 Sodium Potassium Chloride Carbon Dioxide Anion Gap BUN Creatinine Creat Clearance w eGFR POC Glucometer Random Glucose Specific Parrish Lactic Acid 0.6 Calcium Phosphorus Magnesium Total Bilirubin AST ALT Alkaline Phosphatase Creatine Kinase 226 Creatine Kinase Index 1.9 CK-MB (CK-2) 4.5 H Total Protein Albumin Urine Color Urine Appearance Urine pH Ur Specific Parrish Urine Protein Urine Glucose (UA) Urine Ketones Urine Blood Urine Nitrite Urine Bilirubin Urine Urobilinogen Ur Leukocyte Esterase Urine WBC (Auto) Urine RBC (Auto) Urine Butalbital Ur Butalbital Confirm Opiates Screen Negative Urine Opiates Screen Meperidine Urine Normeperidine U Normeperidine GC/MS Urine Codeine U Codeine Confrm GC/MS Urine Morphine Morphine Confirm GC/MS Urine Hydrocodone Ur Hydrocodone (GC/MS) Urine Oxycodone Ur Oxycodone GC/MS Oxymorphone Confirm Urine Oxymorphone U Oxycodone/Oxymorphon Methadone Screen Negative Ur Methadone Ur Methadone Confirm Ur Hydromorphone Ur Hydromorphone (GC/MS) Urine Propoxyphene U Propoxyphene/M GC/MS Barbiturate Screen Negative Ur Barbiturates Screen Urine Barbiturates Valproic Acid Phencyclidine Screen Negative Ur Phencyclidine (PCP) Ur PCP Confirm (GC/MS) Amphetamines Amphetamines Grp GC/MS Ur Amphetamines Screen Negative Urine Amphetamine Ur Amphetamines, Quant Methamphetamine Methamphetamine GC/MS MDMA (Ecstasy) Screen Negative Urine Amobarbital Ur Amobarbital GC/MS Urine Pentobarbital U Pentobarbital GC/MS Urine Phenobarbital U Phenobarbital GC/MS Urine Secobarbital U Secobarbital GC/MS Urine Alprazolam U OH-Alprazolam GC/MS Benzodiazepines Screen Negative U Benzodiazepines Scrn Urine Clonazepam U 7-Amino Clonazep GC/MS Ur Nordiazepam Ur Nordiazepam GC/MS Flurazepam Flurazepam Confirm Lorazepam Urine Lorazepam Ur Oxazepam U Oxazepam Confm GC/MS Urine Temazepam Ur Temazepam (GC/MS) Urine Triazolam Ur Triazolam (GC/MS) Meperidine (GC/MS) Ur Meperidine Cocaine Screen Negative Cocaine & Metabolite Urine Cocaine Benzoylecgonine Cannabinoids Urine Cannabinoids U Marijuana (THC) Screen Negative Urine Marijuana (THC) Ethyl Alc Confirm Acetone, Qual Influenza A (Rapid) Influenza B (Rapid) 06/02/18 06/02/18 06/02/18 05:20 05:20 05:20 WBC 13.6 H RBC 4.28 Hgb 12.4 Hct 37.2 MCV 86.9 MCH 29.0 MCHC 33.4 RDW 14.4 Plt Count 290 MPV 7.1 L Absolute Neuts (auto) 10.6 H Neutrophils % 77.7 Lymphocytes % 9.5 Monocytes % 10.9 H Eosinophils % 1.4 Basophils % 0.5 Nucleated RBC % 0 PT with INR 11.70 INR 0.99 PTT (Actin FS) 28.2 VBG pH POC VBG pCO2 POC VBG pO2 Mixed VBG HCO3 Sodium 140 Potassium 5.0 Chloride 113 H Carbon Dioxide 25 Anion Gap 2 L BUN 21 H Creatinine 1.5 H Creat Clearance w eGFR 55.33 POC Glucometer Random Glucose 95 Specific Parrish Lactic Acid Calcium 8.8 Phosphorus 4.2 Magnesium 2.7 H Total Bilirubin 0.4 AST 16 ALT 23 Alkaline Phosphatase 94 Creatine Kinase Creatine Kinase Index CK-MB (CK-2) Total Protein 5.8 L Albumin 3.2 L Urine Color Urine Appearance Urine pH Ur Specific Parrish Urine Protein Urine Glucose (UA) Urine Ketones Urine Blood Urine Nitrite Urine Bilirubin Urine Urobilinogen Ur Leukocyte Esterase Urine WBC (Auto) Urine RBC (Auto) Urine Butalbital Ur Butalbital Confirm Opiates Screen Urine Opiates Screen Meperidine Urine Normeperidine U Normeperidine GC/MS Urine Codeine U Codeine Confrm GC/MS Urine Morphine Morphine Confirm GC/MS Urine Hydrocodone Ur Hydrocodone (GC/MS) Urine Oxycodone Ur Oxycodone GC/MS Oxymorphone Confirm Urine Oxymorphone U Oxycodone/Oxymorphon Methadone Screen Ur Methadone Ur Methadone Confirm Ur Hydromorphone Ur Hydromorphone (GC/MS) Urine Propoxyphene U Propoxyphene/M GC/MS Barbiturate Screen Ur Barbiturates Screen Urine Barbiturates Valproic Acid Phencyclidine Screen Ur Phencyclidine (PCP) Ur PCP Confirm (GC/MS) Amphetamines Amphetamines Grp GC/MS Ur Amphetamines Screen Urine Amphetamine Ur Amphetamines, Quant Methamphetamine Methamphetamine GC/MS MDMA (Ecstasy) Screen Urine Amobarbital Ur Amobarbital GC/MS Urine Pentobarbital U Pentobarbital GC/MS Urine Phenobarbital U Phenobarbital GC/MS Urine Secobarbital U Secobarbital GC/MS Urine Alprazolam U OH-Alprazolam GC/MS Benzodiazepines Screen U Benzodiazepines Scrn Urine Clonazepam U 7-Amino Clonazep GC/MS Ur Nordiazepam Ur Nordiazepam GC/MS Flurazepam Flurazepam Confirm Lorazepam Urine Lorazepam Ur Oxazepam U Oxazepam Confm GC/MS Urine Temazepam Ur Temazepam (GC/MS) Urine Triazolam Ur Triazolam (GC/MS) Meperidine (GC/MS) Ur Meperidine Cocaine Screen Cocaine & Metabolite Urine Cocaine Benzoylecgonine Cannabinoids Urine Cannabinoids U Marijuana (THC) Screen Urine Marijuana (THC) Ethyl Alc Confirm Acetone, Qual Influenza A (Rapid) Influenza B (Rapid) Active Medications Generic Name Dose Route Start Last Admin Trade Name Kinq PRN Reason Stop Dose Admin Divalproex Sodium 500 mg 06/02/18 10:00 06/02/18 09:21 Depakote - PO 500 mg BID EZRA Administration Sodium Chloride 1,000 mls @ 50 mls/hr 06/02/18 02:00 06/02/18 03:00 Normal Saline - IV 06/02/18 21:59 50 mls/hr ASDIR EZRA Administration Ceftriaxone Sodium 2 gm/ 100 mls @ 200 mls/hr 06/02/18 10:00 06/02/18 09:21 Dextrose IVPB 200 mls/hr DAILY EZRA Administration Insulin Aspart 1 vial 06/02/18 07:00 06/02/18 11:19 Novolog Vial Sliding Scale - SQ Not Given ACHS EZRA Protocol Topiramate 900 mg 06/02/18 10:00 Topamax - PO BID EZRA ASSESSMENT/PLAN: Patient is a 27 year old male with history of autism, diabetes mellitus, presents from [facility] with complaint of lethargy ongoign for past 5 days prior to presentation. Acute metabolic encephalopathy -Concern for polypharmacy, vs. meningitis -Valproic acid level 27.5, [place] level pending. -Urine toxicology negative -Neurology consult (Dr. Valadez) appreciated -IR consulted for lumbar puncture. Will discuss with anasthesiology regarding sedation for procedure. -ID consult (Dr. Bowman) appreciated. -Ceftriaxone 2 grams IV daily -Depakote 500mg PO BID -Topamax 900mg PO BID Diabetes mellitus, not insulin dependent -Holding home Metformin -Insulin sliding scale ACHS -Fingerstick blood glucose monitoring ACHS Acute kidney injury vs. CKD -Improving; BUN 21 (23 yesterday), Cr 1.5 (1.7 yesterday) -Uncertain baseline Creatinine -Folow CPK -Gentle hydration with IV normal saline at 50mL/ hour -Follow CMP FEN -IV normal saline at 50mL/ hour -Within normal limits, follow CMP -NPO pending IR lumbar puncture Prophylaxis -Holding chemical anticoagulation pending IR lumbar puncture Disposition -Continue care in medical- surgical floor Visit type - Emergency Visit Emergency Visit: Yes ED Registration Date: 06/02/18 Care time: The patient presented to the Emergency Department on the above date and was hospitalized for further evaluation of their emergent condition. - New Patient This patient is new to me today: Yes Date on this admission: 06/02/18 - Critical Care Critical Care patient: No - Discharge Referral Referred to [facility] Med P.C.: No
--- NOTE | 2018-06-02 16:12 | PN ---
Teaching Attending Note Name of Resident: Jim Lunsford ATTENDING PHYSICIAN STATEMENT I saw and evaluated the patient. I reviewed the resident's note and discussed the case with the resident. I agree with the resident's findings and plan as documented. SUBJECTIVE:said no to having CP, LUTZ, eye sensitivity to light as per aid in the room he was c/o LUTZ earlier today but has since resolved and has had no complaints. she said he is close to baseline but noted to be less verbal. states he been acting "off" since his medications were adjusted a few weeks ago. she said she knows 2 were increased but does not recall which medications and indication for adjustment at baseline he is able to have conversation but needs to be prompted and answers in 1 or 2 word sentences. is able to perform his own ADL's OBJECTIVE: Last Vital Signs Temp Pulse Resp BP Pulse Ox 98.5 F 86 18 143/62 95 06/02/18 12:46 06/02/18 12:46 06/02/18 12:46 06/02/18 12:46 06/02/18 12:46 General NAD CV S1 S2 RRR no m/r/g Lungs CTA anteriorly Neuro no nuchal rigidity. refused further neurological testing ASSESSMENT AND PLAN: 27yo M with PMH Autism, scoliosis, and DM presented to the ER wtih progressively worsening lethargy and LUTZ 1. Altered Mental Status - possible polypharmacy vs menningitis. pt is on very high doses of topamax which is known to have mental slowing. unclear reason for this dosing. will need to verify medications and indications. pt has clinically improved although not at baseline. will treat empirically for menningitis. plan for IR guided LP in AM. droplet precautions. Ceftriaxone/vanco day 2. neuro and ID on board. utox negative/flu negative/Head CT negative 2. NAZ- possible dehydration. cont IVF. trend labs. 3. DM hold oral agents. iss and BGM 4. DVT prophylaxis - Heparin 5000u sq tid.
--- NOTE | 2018-06-02 17:29 | CON.NEURO ---
Consult - Alcohol/Substance Use Hx Alcohol Use: No - Smoking History Smoking history: Never smoked Have you smoked in the past 12 months: No Home Medications - Allergies Allergies/Adverse Reactions: Allergies Allergy/AdvReac Type Severity Reaction Status Date / Time No Known Allergies Allergy Verified 06/01/18 19:26 - Home Medications Home Medications: Ambulatory Orders Chlorpromazine HCl 200 mg PO BID 06/02/18 Divalproex [Depakote -] 500 mg PO BID 06/02/18 [place] Carbonate [Eskalith -] 900 mg PO AM 06/02/18 [place] Carbonate [Lithobid] 1,200 mg PO HS 06/02/18 Metformin HCl [Metformin HCl ER] 500 mg PO DAILY 06/02/18 Topiramate 900 mg PO BID 06/02/18 traZODone HCL [Trazodone HCl] 100 mg PO HS 06/02/18 Physical Exam-Neuro Vital Signs: Vital Signs Temperature 98.5 F 06/02/18 12:46 Pulse Rate 86 06/02/18 12:46 Respiratory Rate 18 06/02/18 12:46 Blood Pressure 143/62 06/02/18 12:46 O2 Sat by Pulse Oximetry (%) 95 06/02/18 12:46 Labs: CBC, BMP 06/02/18 05:20 06/02/18 05:20 INR, PTT INR 0.99 (0.83-1.09) 06/02/18 05:20 Assessment/Plan CC Lethagy , agitation and tremors HPI 27 year old male history of Autism, behavior disorder, DM. He lives in a care home, he has not been participating in group activity. His home care manager denies any high grade fever, He was complaining of headahce. Patient found to have high wbc, and he has spinal surgery done10 years ago and has hard burks in spine for scoliosis. Patient is seeing psychiatrist for behavior disorder. His depaktoe was increased from 250 mg po bid recently due to insomnia. Patient also takes Li and Topamax. I spoke to two sister at bedside and hospice care sales consultant. Patient spinal tap is planned for tomorrow under anesthesia and IR. Past Medical History as above PAST SURGICAL HISTORY: Scoliosis surgery in past Social History: Smoking: denies Alcohol: denies Drugs: denies Family History: non-contributory Allergies No Known Allergies Allergy (Verified 06/01/18 19:26) HOME MEDICATIONS: Li, Depakote 500 mg po bid and topamax 900 mg po bid NEUROLOGICAL EXAMINATION Alert follow command, patient is eating and able to follow command no neck stiffness no face asymmetry, pupils reactive moving all extremity CT head is normal Assessment/Plan 27 year old male history of Autism, spinal surgery for scoliosis. Patient came with lethargy and agitation . Patient is on very high dose of Topamax 900 mgp o bid, depakote 500 mg po bid and Li.CLinically suspected meningitis vs Poly pharmacy Plan: concur with stopping Li and spinal tap for rule out meningitis - suggest to reduce topamax to 200 mg po bid - spinal tap schedule for tomorrow, consider psych consult after spinal tap - will continue to follow up Thanking you so much Luis Valadez MD
[2018-06-02] MEDS ORDERED: LORazepam 2 MG/ML SDV VIAL IM ONE (21:45)
[2018-06-03] MEDS: TOPIRAMATE 100 MG TABLET PO SCH ×4 (00:57→22:07)
[2018-06-03] MEDS ORDERED: LORazepam 2 MG/ML SDV VIAL IM ONE (01:00)
[2018-06-03] MEDS ORDERED: LORazepam 2 MG/ML SDV VIAL IVPUSH ONE (03:29)
[2018-06-03] MEDS: INSULIN SLIDING SCALE (NOVOLOG) 1 VIAL SQ SCH ×4 (06:14→22:06)
[2018-06-03 08:04] LABS: HEMATOCRIT 38.9 % (35.4-49); HEMOGLOBIN 13.2 GM/dL (11.7-16.9); MCH 29.5 pg (25.7-33.7); MCHC 33.9 g/dl (32.0-35.9); MEAN CELL VOLUME 87.1 fl (80-96); MEAN PLT VOLUME 7.6 fl (7.5-11.1); PLATELET COUNT 317 K/MM3 (134-434); RBC 4.47 M/mm3 (4.00-5.60); RDW 14.7 % (11.9-15.9); WHITE BLOOD COUNT 12.7 K/mm3 (4.0-10.0)
[2018-06-03 09:10] LABS: ALBUMIN 3.6 g/dl (3.4-5.0); ALK PHOS 134 U/L (45-117); ANION GAP 6 MMOL/L (8-16); BILIRUBIN,TOTAL 0.2 mg/dL (0.2-1); BLOOD UREA NITROGEN 13 mg/dL (7-18); CALCIUM 9.2 mg/dL (8.5-10.1); CHLORIDE 122 mmol/L (98-107); CO2 21 mmol/L (21-32); CREATININE 1.5 mg/dL (0.55-1.3); GLUCOSE,RANDOM 113 mg/dL (74-106); POTASSIUM 5.7 mmol/L (3.5-5.1); SGOT/AST 20 U/L (15-37); SGPT/ALT 28 U/L (13-61); SODIUM 149 mmol/L (136-145)
[2018-06-03] MEDS ORDERED: DEXTROSE 5%-WATER 100 ML IVPB ONE (09:37)
[2018-06-03] MEDS: CEFTRIAXONE 2 GM in DEXTROSE 5%-WATER 100 ML IVPB SCH (09:58)
--- NOTE | 2018-06-03 11:28 | PN ---
Physical Exam: SUBJECTIVE: Patient seen and examined at bedside this morning. Overnight he was agitated requiring two doses Ativan 0.5mg IV, and one dose of Atival 2.0mg IV for sedation. He is currently under constant supervision. Patent does not endorse acute new complaints today. Patient's sister at bedside notes that he does not like hospitals, and shakes when he is frightened. OBJECTIVE: Vital Signs Period Temp Pulse Resp BP Sys/Schwartz Pulse Ox Last 24 Hr 98.2 F-98.6 F 80-92 18-22 139-150/62-94 95-96 GENERAL: The patient is awake, tremulous, following commands. HEAD: Normocephalic, atraumatic. No nuchal rigidity. Negative Kernig, Brudzinsky sign. EYES: PERRL, extraocular movements intact, sclera anicteric. ENT: Oropharynx clear without exudates, dry mucous membranes. NECK: Supple without lymphadenopathy LUNGS: Breath sounds equal, clear to auscultation bilaterally, no wheezes, no crackles, no accessory muscle use. HEART: Regular rate and rhythm, S1, S2 without murmur, rub or gallop. ABDOMEN: Obese. Soft, nontender to light and deep palpation, nondistended. Normoactive bowel sounds, X4 quadrants. No guarding, no rebound tenderness. EXTREMITIES: 2+ radial, dorsalis pedis pulses bilaterally. Warm, well-perfused, no lower extremity edema bilaterally. NEUROLOGICAL: Patient freely moves all 4 extremities, strength 5/5 bilateral upper and lower extremities. No gross focal deficits. SKIN: Warm, dry. Laboratory Results - last 24 hr 06/02/18 06/02/18 06/03/18 16:45 22:36 05:25 WBC 12.7 H RBC 4.47 Hgb 13.2 Hct 38.9 MCV 87.1 MCH 29.5 MCHC 33.9 RDW 14.7 Plt Count 317 MPV 7.6 Sodium Potassium Chloride Carbon Dioxide Anion Gap BUN Creatinine Creat Clearance w eGFR POC Glucometer 109 103 Random Glucose Calcium Total Bilirubin AST ALT Alkaline Phosphatase Total Protein Albumin 06/03/18 06/03/18 05:25 06:11 WBC RBC Hgb Hct MCV MCH MCHC RDW Plt Count MPV Sodium 149 H Potassium 5.7 H Chloride 122 H Carbon Dioxide 21 Anion Gap 6 L BUN 13 Creatinine 1.5 H Creat Clearance w eGFR 55.33 POC Glucometer 110 Random Glucose 113 H Calcium 9.2 Total Bilirubin 0.2 AST 20 ALT 28 Alkaline Phosphatase 134 H Total Protein 7.0 Albumin 3.6 Active Medications Generic Name Dose Route Start Last Admin Trade Name Edgar PRN Reason Stop Dose Admin Divalproex Sodium 500 mg 06/02/18 10:00 06/02/18 21:53 Depakote - PO 500 mg BID EZRA Administration Ceftriaxone Sodium 2 gm/ 100 mls @ 200 mls/hr 06/02/18 10:00 06/03/18 09:58 Dextrose IVPB 200 mls/hr DAILY EZRA Administration Insulin Aspart 1 vial 06/02/18 07:00 06/03/18 06:14 Novolog Vial Sliding Scale - SQ Not Given ACHS EZRA Protocol Topiramate 200 mg 06/02/18 22:00 06/03/18 01:29 Topamax - PO 200 mg BID EZRA Administration ASSESSMENT/PLAN: Patient is a 27 year old male with history of autism, diabetes mellitus, presents from [facility] with complaint of lethargy ongoign for past 5 days prior to presentation. Acute toxic metabolic encephalopathy -Likely secondary to Lithiuim toxicity. [place] level 4.0 -Nephrology consult (Dr. Kat) appreciated -Hemodialysis was discussed with patient's family at bedside. They would like to wait for repeat [place] level. -Repeat [place] level STAT. Follow BMP -EKG shows normal sinus rhythm. Qtc 430. Transfer to Telemetry floor for cardiac monitoring -ID consult (Dr. Bowman) appreciated. Less likely meningitis. Ceftriaxone discontinued after discussion with ID. -Neurology consult (Dr. Valadez) appreciated. -Patient was unable to tolerate lumbar puncture today, patient was reported to be significantly agitated. -Topamax dose lowered to 200mg PO BID -Will discuss with assisted as to why his medication doses were changed -Continue Depakote 500mg PO BID Acute kidney injury vs. CKD -Likely secondary to decreased oral intake, dehydration. -Improving; BUN 13 (21 yesterday), Cr 1.5 (1.5 yesterday) -Hydration with 0.45% normal saline at 150mL/ hour -Follow CMP Diabetes mellitus, not insulin dependent -Holding home Metformin -Insulin sliding scale ACHS -Fingerstick blood glucose monitoring ACHS Hypernatremia -Fluids switched to 0.45% normal saline at 150mL/ hour -Repeat BMP today Hyperkalemia -Kayexalate 15mg PO -Repeat BMP today FEN -IV 0.45% normal saline at 150mL/ hour -Within normal limits, follow CMP -Chopped diet Prophylaxis -Heparin 5000u subq TID Disposition -Transfer to Telemetry floor Visit type - Emergency Visit Emergency Visit: Yes ED Registration Date: 06/02/18 Care time: The patient presented to the Emergency Department on the above date and was hospitalized for further evaluation of their emergent condition. - New Patient This patient is new to me today: No - Critical Care Critical Care patient: No - Discharge Referral Referred to [facility] Med P.C.: No
[2018-06-03] MEDS ORDERED: PT OWN MED DRAWER 7, Y5N ONE ×2 (11:29→20:56)
[2018-06-03] MEDS: DIVALPROEX SODIUM 500 MG TABLET E.C. PO SCH ×2 (11:33→22:07)
--- NOTE | 2018-06-03 12:16 | PN ---
Progress Note, Physician History of Present Illness: AWAKE, AGITATED, CONFUSED TREMULOUS NOT CONVERSANT AFEBRILE WBC IMPROVED CULTURES NEGATIVE LI LEVEL TOXIC LP UNABLE TO BE DONE SECONDARY TO AGITATION - Current Medication List Current Medications: Active Medications Divalproex Sodium (Depakote -) 500 mg PO BID [facility] Last Admin: 06/03/18 11:33 Dose: 500 mg Ceftriaxone Sodium 2 gm/ (Dextrose) 100 mls @ 200 mls/hr IVPB DAILY [facility] Last Admin: 06/03/18 09:58 Dose: 200 mls/hr Insulin Aspart (Novolog Vial Sliding Scale -) 1 vial SQ ACHS [facility]; Protocol Last Admin: 06/03/18 11:45 Dose: Not Given Topiramate (Topamax -) 200 mg PO BID [facility] Last Admin: 06/03/18 11:33 Dose: 200 mg - Objective Vital Signs: Vital Signs Temperature 98.2 F 06/03/18 10:00 Pulse Rate 92 H 06/03/18 10:00 Respiratory Rate 22 H 06/03/18 10:00 Blood Pressure 139/94 06/03/18 10:00 O2 Sat by Pulse Oximetry (%) 96 06/02/18 21:00 Neck: Yes: Supple Cardiovascular: Yes: Regular Rate and Rhythm, S1, S2 Respiratory: Yes: Diminished Gastrointestinal: Yes: Normal Bowel Sounds, Soft. No: Tenderness Labs: CBC, BMP 06/03/18 05:25 06/03/18 05:25 INR, PTT INR 0.99 (0.83-1.09) 06/02/18 05:20 Assessment/Plan CLINICAL PRESENTATION C/W LI TOXICITY MENINGITIS LESS LIKELY ADVISE ICU EVALUATION FOR CARDIAC MONITORING NEUROLOGY FOLLOW UP RENAL EVALUATION FOR POSSIBLE EMERGENT HEMODIALYSIS DISCUSSED WITH RESIDENT
[2018-06-03] MEDS ORDERED: SODIUM CHLORIDE 1,000 ML IV SCH ×2 (12:30→12:59)
--- NOTE | 2018-06-03 13:04 | PN ---
Teaching Attending Note Name of Resident: Jim Lunsford ATTENDING PHYSICIAN STATEMENT I saw and evaluated the patient. I reviewed the resident's note and discussed the case with the resident. I agree with the resident's findings and plan as documented. SUBJECTIVE:rocking in bed repeating "one". does not respond to questioning OBJECTIVE: Last Vital Signs Temp Pulse Resp BP Pulse Ox 98.2 F 92 H 22 H 139/94 96 06/03/18 10:00 06/03/18 10:00 06/03/18 10:06/03/18 10:06/02/18 21:00 General rocking back and forth CV S1 S2 RRR no m/r/g Lungs CTA anteriorly Neuro no nuchal rigidity. unable to follow commands to assess, full body tremors ASSESSMENT AND PLAN: 27yo M with PMH Autism, scoliosis, and DM presented to the ER wtih progressively worsening lethargy and LUTZ 1. Acute toxic metabolic encephalopathy -due to lithium toxicity. level returned at 4. increase IVF to 150cc/h. will obtain stat EKG and transfer to [facility] for cardiac monitoring of QT and for bradycardia. nephro consult to evalute for possible urgent HD. attempt this AM for LP however pt was unable to stay positioned even with light sedation. low suspicion for meningitis at this time with newly reported lithium level. will repeat level now stat. will d/w ID about d/c abx at this time. ca 9.2. on reduced dose of topamax, will need to determine indication for these medications. 2. NAZ- possible dehydration and medication induced. renal being consulted. cont IVF. trend labs. 3. Hyperkalemia- check EKG. kayexylate. repeat 4. DM hold oral agents. iss and BGM 5. DVT prophylaxis - Heparin 5000u sq tid.
[2018-06-03] MEDS ORDERED: SODIUM POLYSTYRENE SULFONATE 15 GM/60 ML BOTTLE PO ONE (13:30)
--- NOTE | 2018-06-03 13:48 | EKG ---
Test Reason : Blood Pressure : / mmHG Vent. Rate : 089 BPM Atrial Rate : 089 BPM P-R Int : 144 ms QRS Dur : 118 ms QT Int : 354 ms P-R-T Axes : 043 006 035 degrees QTc Int : 430 ms NORMAL SINUS RHYTHM WITH SINUS ARRHYTHMIA NON-SPECIFIC INTRA-VENTRICULAR CONDUCTION DELAY BORDERLINE ECG NO PREVIOUS ECGS AVAILABLE Confirmed by DON RAINEY MD ([id number]) on 06/03/2018 1:48:04 PM Referred By: Confirmed By:DON RAINEY MD
--- NOTE | 2018-06-03 14:25 | CONSULT ---
Consult Consult Specialty:: Nephrology Reason for Consultation:: naz, hyperkalemia, elevated lithium levels - History of Present Illness Chief Complaint: altered mental status History of Present Illness: Pt is a 27 year old male with pmhx of DM, autism and impulse control disorder who [facility]y. Pt presented to the hospital 2 days ago. He had about 4 to 5 days of progressive lethargy before admission. He is unable to give history. Pt did not have any fevers or chills. I was called to evaluate him this afternoon as he was found to have a elevated lithium level from the labs drawn on the . His mental status has improved over the weekend. His sisters are at bedside and feel that his is improved. He is not however cooperative with treatments. He could not have the lumbar puncture today secondary to agitation. Pt at baseline answers yes/no to questions. - History Source History Provided By: Family Member, Medical Record - Past Medical History Psych: Yes: Other (autism) Endocrine: Yes: Diabetes Mellitus - Past Surgical History Additional Surgical History: back surgery - Alcohol/Substance Use Hx Alcohol Use: No - Smoking History Smoking history: Never smoked Have you smoked in the past 12 months: No Home Medications - Allergies Allergies/Adverse Reactions: Allergies Allergy/AdvReac Type Severity Reaction Status Date / Time No Known Allergies Allergy Verified 06/01/18 19:26 - Home Medications Home Medications: Ambulatory Orders Chlorpromazine HCl 200 mg PO BID 06/02/18 Divalproex [Depakote -] 500 mg PO BID 06/02/18 [place] Carbonate [Eskalith -] 900 mg PO AM 06/02/18 [place] Carbonate [Lithobid] 1,200 mg PO HS 06/02/18 Metformin HCl [Metformin HCl ER] 500 mg PO DAILY 06/02/18 Topiramate 900 mg PO BID 06/02/18 traZODone HCL [Trazodone HCl] 100 mg PO HS 06/02/18 Family Disease History - Family Disease History Family History: Unable to Obtain Review of Systems Unable to obtain ROS, reason: pt not verbal Findings/Remarks: pt is not cooperative with exam - Review of Systems Constitutional: denies: Chills, Fever Physical Exam Vital Signs: Vital Signs Temperature 98.2 F 06/03/18 10:00 Pulse Rate 92 H 06/03/18 10:00 Respiratory Rate 22 H 06/03/18 10:00 Blood Pressure 139/94 06/03/18 10:00 O2 Sat by Pulse Oximetry (%) 96 06/02/18 21:00 Constitutional: Yes: Anxious Eyes: Yes: WNL HENT: Yes: Atraumatic Neck: Yes: Supple Cardiovascular: Yes: S1, S2 Respiratory: Yes: CTA Bilaterally Gastrointestinal: Yes: Soft, Abdomen, Obese Renal/: Yes: Incontinence Musculoskeletal: Yes: WNL Edema: No Integumentary: Yes: Other (surgical scars on back, neg rash) Neurological: Yes: Confusion, Pre-Existing Deficit Psychiatric: Yes: Agitated Labs: CBC, BMP 06/03/18 05:25 06/03/18 05:25 Laboratory Tests 06/01/18 06/01/18 06/01/18 20:50 20:50 20:50 WBC 15.1 H VBG pH 7.37 POC VBG pCO2 41.0 POC VBG pO2 33.3 Mixed VBG HCO3 23.2 Sodium Potassium Chloride Anion Gap Creatinine 1.7 H Random Glucose Urine Protein Urine Blood [place] Influenza A (Rapid) Influenza B (Rapid) 06/01/18 06/01/18 06/01/18 20:50 22:11 22:26 WBC VBG pH POC VBG pCO2 POC VBG pO2 Mixed VBG HCO3 Sodium Potassium Chloride Anion Gap Creatinine Random Glucose Urine Protein 2+ H Urine Blood Negative [place] 4.0 H* Influenza A (Rapid) Negative Influenza B (Rapid) Negative 06/02/18 06/02/18 06/03/18 05:20 05:20 05:25 WBC 13.6 H 12.7 H VBG pH POC VBG pCO2 POC VBG pO2 Mixed VBG HCO3 Sodium Potassium Chloride Anion Gap Creatinine 1.5 H Random Glucose Urine Protein Urine Blood [place] Influenza A (Rapid) Influenza B (Rapid) 06/03/18 05:25 WBC VBG pH POC VBG pCO2 POC VBG pO2 Mixed VBG HCO3 Sodium 149 H Potassium 5.7 H Chloride 122 H Anion Gap 6 L Creatinine 1.5 H Random Glucose 113 H Urine Protein Urine Blood [place] Influenza A (Rapid) Influenza B (Rapid) Imaging - Results Chest X-ray: Report Reviewed Cat Scan: Report Reviewed Problem List - Problems (1) NAZ (acute kidney injury) Code(s): N17.9 - ACUTE KIDNEY FAILURE, UNSPECIFIED (2) Hyperkalemia Code(s): E87.5 - HYPERKALEMIA (3) [place] toxicity Code(s): T56.891A - TOXIC EFFECT OF OTH METALS, ACCIDENTAL (UNINTENTIONAL), INIT (4) Diabetes mellitus Code(s): E11.9 - TYPE 2 DIABETES MELLITUS WITHOUT COMPLICATIONS (5) Altered mental status Code(s): R41.82 - ALTERED MENTAL STATUS, UNSPECIFIED Assessment/Plan Current Medications Generic Name Dose Route Start Last Admin Trade Name Edgar PRN Reason Stop Dose Admin Divalproex Sodium 500 mg 06/02/18 10:00 06/03/18 11:33 Depakote - PO 500 mg BID EZRA Administration Sodium Chloride 1,000 mls @ 150 mls/hr 06/03/18 12:59 06/03/18 13:45 Normal Saline - IV 150 mls/hr ASDIR EZRA Administration Insulin Aspart 1 vial 06/02/18 07:00 06/03/18 11:45 Novolog Vial Sliding Scale - SQ Not Given ACHS EZRA Protocol Topiramate 200 mg 06/02/18 22:00 06/03/18 11:33 Topamax - PO 200 mg BID EZRA Administration Impression 1. 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 hyperkalemia 3. lithium toxicity 4. DM 5. autism 6. impulse control disorder 7. altered mental status Plan - change fluids to 1/2 ns - potassium treated medically earlier today, follow repeat labs - discussed HD with family and they want to wait for repeat lithium levels. They are concerned with pts mental status and agitation. I explained risks of lithium toxicity along with risks of dialysis therapy. They want to wait for his mother who is flying in from [facility] today. - pt is making urine - send stat repeat lithium level, hopefully the numbers have improved - pt is clinically improved - check ecg - place on monitored unit - metformin stopped - monitor blood sugar
[2018-06-03] MEDS: SODIUM CHLORIDE 0.45% 1,000 ML IV SCH (15:57)
[2018-06-03 17:11] LABS: ANION GAP 5 MMOL/L (8-16); BLOOD UREA NITROGEN 12 mg/dL (7-18); CALCIUM 9.4 mg/dL (8.5-10.1); CHLORIDE 126 mmol/L (98-107); CO2 20 mmol/L (21-32); CREATININE 1.7 mg/dL (0.55-1.3); GLUCOSE,RANDOM 108 mg/dL (74-106); POTASSIUM 5.2 mmol/L (3.5-5.1); SODIUM 151 mmol/L (136-145)
--- NOTE | 2018-06-03 19:31 | PN ---
Progress Note (short form) - Note Progress Note: 27 year old male history of Autism, behavior disorder, DM. He lives in a fdc, he has not been participating in group activity. His child care attendant denies any high grade fever, He was complaining of headahce. Patient found to have high wbc, and he has spinal surgery done10 years ago and has hard burks in spine for scoliosis. Patient is seeing psychiatrist for behavior disorder. His depaktoe was increased from 250 mg po bid recently due to insomnia. Patient also takes Li and Topamax. I spoke to two sister at bedside and career based intervention coordinator. Gracetenshoshana is less lethargic and more awake and He is not back to baseline. Spinal tap could not be done and ID also felt , unlikley to be meningitis and Abx were stopped. Li level were high and being seen by police detective. NEUROLOGICAL EXAMINATION Alert follow command, agitation no neck stiffness no face asymmetry, pupils reactive moving all extremity CT head is normal spinal tap could not attempted due to agitation, Abx were stopped on Jun 03 by ID , as meningitis is less likley Assessment/Plan 27 year old male history of Autism, spinal surgery for scoliosis. Patient came with lethargy and agitation . Patient is on very high dose of Topamax 900 mgp o bid, depakote 500 mg po bid and Li. Mental status change seems to be due to Li AND Topamax toxicity. Plan: concur with stopping ID , as meningitis is less likley - suggest to reduce topamax to 200 mg po bid for now - Neurocheck and continue to observe and follow up - Nephro consult appreciated - COnsider Psychiatry consult Thanking you so much Luis Valadez MD
[2018-06-03] MEDS ORDERED: ACETAMINOPHEN 325 MG TABLET (FP) PO PRN (19:46)
[2018-06-03 22:35] LABS: ANION GAP 8 MMOL/L (8-16); BLOOD UREA NITROGEN 12 mg/dL (7-18); CHLORIDE 120 mmol/L (98-107); CO2 18 mmol/L (21-32); CREATININE 1.6 mg/dL (0.55-1.3); GLUCOSE,RANDOM 129 mg/dL (74-106); POTASSIUM 4.5 mmol/L (3.5-5.1); SODIUM 146 mmol/L (136-145)
[2018-06-04] MEDS ORDERED: ACETAMINOPHEN 325 MG TABLET (FP) PO ONE (00:11)
[2018-06-04] MEDS ORDERED: PT OWN MED DRAWER 7, Y5N ONE ×2 (05:30→21:51)
[2018-06-04] MEDS: INSULIN SLIDING SCALE (NOVOLOG) 1 VIAL SQ SCH ×4 (06:17→22:20)
[2018-06-04 08:03] LABS: HEMATOCRIT 37.5 % (35.4-49); HEMOGLOBIN 12.5 GM/dL (11.7-16.9); MCH 28.7 pg (25.7-33.7); MCHC 33.2 g/dl (32.0-35.9); MEAN CELL VOLUME 86.4 fl (80-96); MEAN PLT VOLUME 7.3 fl (7.5-11.1); PLATELET COUNT 284 K/MM3 (134-434); RBC 4.34 M/mm3 (4.00-5.60); RDW 14.7 % (11.9-15.9); WHITE BLOOD COUNT 13.7 K/mm3 (4.0-10.0)
[2018-06-04 08:38] LABS: ALBUMIN 3.4 g/dl (3.4-5.0); ALK PHOS 121 U/L (45-117); ANION GAP 7 MMOL/L (8-16); BILIRUBIN,TOTAL 0.4 mg/dL (0.2-1); BLOOD UREA NITROGEN 10 mg/dL (7-18); CALCIUM 8.9 mg/dL (8.5-10.1); CHLORIDE 114 mmol/L (98-107); CO2 21 mmol/L (21-32); CREATININE 1.5 mg/dL (0.55-1.3); GLUCOSE,RANDOM 100 mg/dL (74-106); POTASSIUM 4.2 mmol/L (3.5-5.1); SGOT/AST 20 U/L (15-37); SGPT/ALT 26 U/L (13-61); SODIUM 143 mmol/L (136-145); TOT PROT 6.6 g/dl (6.4-8.2)
[2018-06-04] MEDS: TOPIRAMATE 100 MG TABLET PO SCH ×2 (09:52→22:20)
[2018-06-04] MEDS: DIVALPROEX SODIUM 500 MG TABLET E.C. PO SCH ×2 (09:52→22:19)
[2018-06-04] MEDS: SODIUM CHLORIDE 0.45% 1,000 ML IV SCH ×3 (09:56→22:21)
--- NOTE | 2018-06-04 10:54 | PN ---
Teaching Attending Note Name of Resident: Jim Lunsford ATTENDING PHYSICIAN STATEMENT I saw and evaluated the patient. I reviewed the resident's note and discussed the case with the resident. I agree with the resident's findings and plan as documented. SUBJECTIVE:asymptomatic. appears comfortable when entering the room. gets frightened easily and full body tremors most prominent in the upper extremities. OBJECTIVE: Last Vital Signs Temp Pulse Resp BP Pulse Ox 99 F 64 20 118/73 100 06/04/18 09:58 06/04/18 09:58 06/04/18 09:58 06/04/18 09:58 06/04/18 10:05 General NAD CV S1 S2 RRR no m/r/g Lungs CTA anteriorly ASSESSMENT AND PLAN: 27yo M with PMH Autism, scoliosis, and DM presented to the ER wtih progressively worsening lethargy and LUTZ 1. Acute toxic metabolic encephalopathy -due to lithium toxicity. lithium level on repeat 2. no indication for HD at this time. clinically improved. awaiting psych eval to evaluate. no events on cafeteria monitor. QTC WNL. neuro on board 2. Fever- Tm101. sepsis workup not completed. workup on presentation negative. will complete workup if spikes temp again. would hold on abx at this time. 3. NAZ- possible dehydration and medication induced. slowly trending down. will reduce IVF but will cont to hydrate at this time. f/u renal. 4. Hyperkalemia- no peaked T waves. resolved 5. DM hold oral agents. iss and BGM 6. DVT prophylaxis - Heparin 5000u sq tid.
--- NOTE | 2018-06-04 11:09 | PN ---
Physical Exam: SUBJECTIVE: Patient seen and examined at bedside this morning. Overnight patient was febrile to Tmax 101F. Patient is resting comfortably in exam bed, no acute distress. Diminishing upper extremity tremors noted. He is more alert and responsive today. OBJECTIVE: Vital Signs Period Temp Pulse Resp BP Sys/Schwartz Pulse Ox Last 24 Hr 99 F-101 F 64-82 18-20 118-152/72-79 98-100 GENERAL: The patient is awake, following commands. No acute distress. HEAD: Normocephalic, atraumatic. No nuchal rigidity. Negative Kernig, Brudzinsky sign. EYES: PERRL, extraocular movements intact, sclera anicteric. ENT: Oropharynx clear without exudates, dry mucous membranes. NECK: Supple without lymphadenopathy LUNGS: Breath sounds equal, clear to auscultation bilaterally, no wheezes, no crackles, no accessory muscle use. HEART: Regular rate and rhythm, S1, S2 without murmur, rub or gallop. ABDOMEN: Obese. Soft, nontender to light and deep palpation, nondistended. Normoactive bowel sounds, X4 quadrants. No guarding, no rebound tenderness. EXTREMITIES: 2+ radial, dorsalis pedis pulses bilaterally. Warm, well-perfused, no lower extremity edema bilaterally. NEUROLOGICAL: Patient freely moves all 4 extremities, strength 5/5 bilateral upper and lower extremities. No gross focal deficits. SKIN: Warm, dry. Laboratory Results - last 24 hr 06/01/18 06/03/18 06/03/18 20:50 05:25 11:43 WBC RBC Hgb Hct MCV MCH MCHC RDW Plt Count MPV Sodium 149 H Potassium 5.7 H Chloride 122 H Carbon Dioxide 21 Anion Gap 6 L BUN 13 Creatinine 1.5 H Creat Clearance w eGFR 55.33 POC Glucometer 141 Random Glucose 113 H Calcium 9.2 Total Bilirubin 0.2 AST 20 ALT 28 Alkaline Phosphatase 134 H Total Protein 7.0 Albumin 3.6 TSH 3.10 [place] 4.0 H* 06/03/18 06/03/18 06/03/18 12:45 15:45 16:07 WBC RBC Hgb Hct MCV MCH MCHC RDW Plt Count MPV Sodium 151 H Potassium 5.2 H Chloride 126 H Carbon Dioxide 20 L Anion Gap 5 L BUN 12 Creatinine 1.7 H Creat Clearance w eGFR 47.89 POC Glucometer 103 Random Glucose 108 H Calcium 9.4 Total Bilirubin AST ALT Alkaline Phosphatase Total Protein Albumin TSH [place] 2.0 H* 06/03/18 06/03/18 06/04/18 21:10 22:05 05:53 WBC RBC Hgb Hct MCV MCH MCHC RDW Plt Count MPV Sodium 146 H Potassium 4.5 Chloride 120 H Carbon Dioxide 18 L Anion Gap 8 BUN 12 Creatinine 1.6 H Creat Clearance w eGFR 51.36 POC Glucometer 119 102 Random Glucose 129 H Calcium 9.0 Total Bilirubin AST ALT Alkaline Phosphatase Total Protein Albumin TSH [place] 06/04/18 06/04/18 06:45 06:45 WBC 13.7 H RBC 4.34 Hgb 12.5 Hct 37.5 MCV 86.4 MCH 28.7 MCHC 33.2 RDW 14.7 Plt Count 284 MPV 7.3 L Sodium 143 Potassium 4.2 Chloride 114 H Carbon Dioxide 21 Anion Gap 7 L BUN 10 Creatinine 1.5 H Creat Clearance w eGFR 55.33 POC Glucometer Random Glucose 100 Calcium 8.9 Total Bilirubin 0.4 AST 20 ALT 26 Alkaline Phosphatase 121 H Total Protein 6.6 Albumin 3.4 TSH [place] Active Medications Generic Name Dose Route Start Last Admin Trade Name Freq PRN Reason Stop Dose Admin Acetaminophen 650 mg 06/03/18 19:46 06/03/18 19:54 Tylenol - PO 650 mg Q6H PRN Administration Fever Or Pain Divalproex Sodium 500 mg 06/04/18 10:00 06/04/18 09:52 Depakote - PO 500 mg BID EZRA Administration Sodium Chloride 1,000 mls @ 150 mls/hr 06/03/18 15:45 06/04/18 09:56 1/2 Normal Saline IV 150 mls/hr ASDIR EZRA Administration Insulin Aspart 1 vial 06/04/18 11:00 Novolog Vial Sliding Scale - SQ ACHS EZRA Protocol Topiramate 200 mg 06/04/18 10:00 06/04/18 09:52 Topamax - PO 200 mg BID EZRA Administration ASSESSMENT/PLAN: Patient is a 27 year old male with history of autism, diabetes mellitus, [facility] with complaint of lethargy ongoing for past 5 days prior to presentation. Acute toxic metabolic encephalopathy -Likely secondary to Lithiuim toxicity. [place] level 4.0 at admission -Repeat level 2.0. Following [place] level. -Nephrology consult (Dr. Kat) appreciated. No indication for hemodialysis at this time. -ID consult (Dr. Bowman) appreciated. Less likely meningitis. Ceftriaxone discontinued after discussion with ID. -Neurology consult (Dr. Valadez) appreciated. -Patient was unable to tolerate lumbar puncture. -Topamax dose lowered to 200mg PO BID -Continue Depakote 500mg PO BID Leukocytosis -Patient febrile overnight Tmax 101F. -Currently holding antibiotics. Discussed with ID. -Will order blood cultures, urine cultures, chest radiograph if patient febrile overnight. Acute kidney injury vs. CKD -Likely secondary to decreased oral intake, dehydration. -Improving; BUN 10 (13 yesterday), Cr 1.5 (1.6 yesterday) -Hydration with 0.45% normal saline at 75mL/ hour -Follow CMP Diabetes mellitus, not insulin dependent -Holding home Metformin -Insulin sliding scale ACHS -Fingerstick blood glucose monitoring ACHS Hypernatremia -Resolved. -Fluids switched to 0.45% normal saline at 75mL/ hour -Follow BMP Hyperkalemia -Resolved. -Kayexalate 15mg PO -Follow BMP FEN -IV 0.45% normal saline at 75mL/ hour -Within normal limits, follow CMP -Chopped diet Prophylaxis -Heparin 5000u subq TID Disposition -Transfer to Telemetry floor Visit type - Emergency Visit Emergency Visit: Yes ED Registration Date: 06/02/18 Care time: The patient presented to the Emergency Department on the above date and was hospitalized for further evaluation of their emergent condition. - New Patient This patient is new to me today: No - Critical Care Critical Care patient: No - Discharge Referral Referred to [facility] Med [facility].: No
--- NOTE | 2018-06-04 12:12 | PN ---
Progress Note, Physician History of Present Illness: MENTAL STATUS IMPROVED AWAKE, RESPONSIVE IN BED ABLE TO ANSWER SIMPLE QUESTIONS FEVER NOTED WBC REMAINS SL ELEVATED 13. - Current Medication List Current Medications: Active Medications Acetaminophen (Tylenol -) 650 mg PO Q6H PRN PRN Reason: Fever Or Pain Last Admin: 06/03/18 19:54 Dose: 650 mg Divalproex Sodium (Depakote -) 500 mg PO BID [facility] Last Admin: 06/04/18 09:52 Dose: 500 mg Sodium Chloride (1/2 Normal Saline) 1,000 mls @ 150 mls/hr IV ASDIR [facility] Last Admin: 06/04/18 09:56 Dose: 150 mls/hr Insulin Aspart (Novolog Vial Sliding Scale -) 1 vial SQ ACHS [facility]; Protocol Last Admin: 06/04/18 11:39 Dose: Not Given Topiramate (Topamax -) 200 mg PO BID [facility] Last Admin: 06/04/18 09:52 Dose: 200 mg - Objective Vital Signs: Vital Signs Temperature 99 F 06/04/18 09:58 Pulse Rate 64 06/04/18 09:58 Respiratory Rate 20 06/04/18 09:58 Blood Pressure 118/73 06/04/18 09:58 O2 Sat by Pulse Oximetry (%) 100 06/04/18 10:05 Constitutional: Yes: No Distress Eyes: Yes: Conjunctiva Clear Cardiovascular: Yes: Regular Rate and Rhythm, S1, S2 Respiratory: Yes: CTA Bilaterally Gastrointestinal: Yes: Normal Bowel Sounds, Soft, Other (NO TENDERNESS) Labs: CBC, BMP 06/04/18 06:45 06/04/18 06:45 INR, PTT INR 0.99 (0.83-1.09) 06/02/18 05:20 Assessment/Plan CLINICAL PRESENTATION C/W LI TOXICITY CLINICALLY IMPROVED FEVER ? ASPIRATION OBTAIN RECPEAT C/S , CXR OFF ANTIBIOTICS NEUROLOGY FOLLOW UP
--- NOTE | 2018-06-04 14:49 | PN ---
Progress Note, Physician History of Present Illness: Pt seen and examined at bedside. He is more awake and interactive than he was yesterday. - Current Medication List Current Medications: Active Medications Acetaminophen (Tylenol -) 650 mg PO Q6H PRN PRN Reason: Fever Or Pain Last Admin: 06/03/18 19:54 Dose: 650 mg Divalproex Sodium (Depakote -) [address] [facility] Last Admin: 06/04/18 09:52 Dose: 500 mg Sodium Chloride (1/2 Normal Saline) 1,000 mls @ 75 mls/hr IV ASDIR [facility] Insulin Aspart (Novolog Vial Sliding Scale -) [address] [facility]; Protocol Last Admin: 06/04/18 11:39 Dose: Not Given Topiramate (Topamax -) [address] [facility] Last Admin: 06/04/18 09:52 Dose: 200 mg - Objective Vital Signs: Vital Signs Temperature 97.6 F 06/04/18 14:21 Pulse Rate 72 06/04/18 14:21 Respiratory Rate 16 06/04/18 14:21 Blood Pressure 132/78 06/04/18 14:21 O2 Sat by Pulse Oximetry (%) 100 06/04/18 10:05 Constitutional: Yes: Calm Eyes: Yes: Conjunctiva Clear HENT: Yes: Atraumatic Cardiovascular: Yes: S1, S2 Respiratory: Yes: CTA Bilaterally Gastrointestinal: Yes: Soft, Abdomen, Obese Genitourinary: Yes: Incontinence Musculoskeletal: Yes: WNL Edema: No Neurological: Yes: Pre-Existing Deficit Labs: CBC, BMP 06/04/18 06:45 06/04/18 06:45 INR, PTT INR 0.99 (0.83-1.09) 06/02/18 05:20 Problem List - Problems (1) ALYSSA (acute kidney injury) Code(s): N17.9 - ACUTE KIDNEY FAILURE, UNSPECIFIED (2) Hyperkalemia Code(s): E87.5 - HYPERKALEMIA (3) [place] toxicity Code(s): T56.891A - TOXIC EFFECT OF OTH METALS, ACCIDENTAL (UNINTENTIONAL), INIT (4) Diabetes mellitus Code(s): E11.9 - TYPE 2 DIABETES MELLITUS WITHOUT COMPLICATIONS (5) Altered mental status Code(s): R41.82 - ALTERED MENTAL STATUS, UNSPECIFIED Assessment/Plan Current Medications Generic Name Dose Route Start Last Admin Trade Name Edgar PRN Reason Stop Dose Admin Acetaminophen 650 mg 06/03/18 19:46 06/03/18 19:54 Tylenol - PO 650 mg Q6H PRN Administration Fever Or Pain Divalproex Sodium 500 mg 06/04/18 10:00 06/04/18 09:52 Depakote - PO 500 mg BID EZRA Administration Sodium Chloride 1,000 mls @ 75 mls/hr 06/04/18 13:58 1/2 Normal Saline IV ASDIR EZRA Insulin Aspart 1 vial 06/04/18 11:00 06/04/18 11:39 Novolog Vial Sliding Scale - SQ Not Given ACHS [facility] Protocol Topiramate 200 mg 06/04/18 10:00 06/04/18 09:52 Topamax - PO 200 mg BID EZRA Administration Laboratory Tests 06/03/18 12:45 [place] 2.0 H* Impression 1. 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 hyperkalemia 3. lithium toxicity 4. DM 5. autism 6. impulse control disorder 7. altered mental status Plan - lithium level is improved - cont with 1/2 ns , agree with decreasing rate - no indication for HD at this point - repeat lithium level - metformin stopped - monitor blood sugar
[2018-06-05 06:10] LABS: HEMATOCRIT 38.9 % (35.4-49); MCH 28.6 pg (25.7-33.7); MCHC 33.4 g/dl (32.0-35.9); MEAN CELL VOLUME 85.7 fl (80-96); MEAN PLT VOLUME 7.2 fl (7.5-11.1); PLATELET COUNT 307 K/MM3 (134-434); RBC 4.54 M/mm3 (4.00-5.60); RDW 14.4 % (11.9-15.9)
[2018-06-05 06:32] LABS: ALBUMIN 3.4 g/dl (3.4-5.0); ALK PHOS 115 U/L (45-117); ANION GAP 8 MMOL/L (8-16); BILIRUBIN,TOTAL 0.5 mg/dL (0.2-1); BLOOD UREA NITROGEN 9 mg/dL (7-18); CALCIUM 8.8 mg/dL (8.5-10.1); CHLORIDE 117 mmol/L (98-107); CO2 20 mmol/L (21-32); CREATININE 1.3 mg/dL (0.55-1.3); GLUCOSE,RANDOM 113 mg/dL (74-106); SGOT/AST 22 U/L (15-37); SGPT/ALT 29 U/L (13-61); SODIUM 145 mmol/L (136-145); TOT PROT 6.7 g/dl (6.4-8.2)
[2018-06-05] MEDS: INSULIN SLIDING SCALE (NOVOLOG) 1 VIAL SQ SCH ×3 (07:57→17:43)
[2018-06-05] MEDS: TOPIRAMATE 100 MG TABLET PO SCH (10:04)
[2018-06-05] MEDS: DIVALPROEX SODIUM 500 MG TABLET E.C. PO SCH (10:04)
--- NOTE | 2018-06-05 11:31 | PN ---
Teaching Attending Note Name of Resident: Jim Lunsford ATTENDING PHYSICIAN STATEMENT I saw and evaluated the patient. I reviewed the resident's note and discussed the case with the resident. I agree with the resident's findings and plan as documented. SUBJECTIVE:very pleasant and happy this AM. appears to have no pain OBJECTIVE: Last Vital Signs Temp Pulse Resp BP Pulse Ox 98.1 F 74 18 153/88 98 06/05/18 07:00 06/05/18 07:00 06/05/18 09:00 06/05/18 07:00 06/05/18 09:00 General NAD CV S1 S2 RRR no m/r/g Lungs CTA anteriorly ASSESSMENT AND PLAN: 27yo M with PMH Autism, scoliosis, and DM presented to the ER wtih progressively worsening lethargy and LUTZ 1. Acute toxic metabolic encephalopathy -due to lithium toxicity. appears to be at baseline. awaiting repeat lithium level. will need to d/w psych about further management at this time. renal and neuro on board 2. Fever-afebrile 24H. no signs of infection. leukocytosis continues to trend down. cont to monitor off abx. 3. NAZ- possible dehydration and medication induced. slowly trending down. cont low dose IVF. renal on board 4. Hyperkalemia- no peaked T waves. resolved 5. DM hold oral agents. iss and BGM 6. DVT prophylaxis - Heparin 5000u sq tid. 7. possible d/c later today pending lithium level
--- NOTE | 2018-06-05 13:54 | PN ---
Progress Note, Physician History of Present Illness: MENTAL STATUS IMPROVED SEATED IN BED EATING LUNCH AWAKE, RESPONSIVE ABLE TO ANSWER SIMPLE QUESTIONS TEMPS DOWN AFEBRILE WBC IMPROVED C/S(-) - Current Medication List Current Medications: Active Medications Acetaminophen (Tylenol -) 650 mg PO Q6H PRN PRN Reason: Fever Or Pain Last Admin: 06/03/18 19:54 Dose: 650 mg Divalproex Sodium (Depakote -) 500 mg PO BID [facility] Last Admin: 06/05/18 10:04 Dose: 500 mg Sodium Chloride (1/2 Normal Saline) 1,000 mls @ 75 mls/hr IV ASDIR [facility] Last Admin: 06/04/18 22:21 Dose: 75 mls/hr Insulin Aspart (Novolog Vial Sliding Scale -) 1 vial SQ ACHS [facility]; Protocol Last Admin: 06/05/18 11:34 Dose: Not Given Topiramate (Topamax -) 200 mg PO BID [facility] Last Admin: 06/05/18 10:04 Dose: 200 mg - Objective Vital Signs: Vital Signs Temperature 98.1 F 06/05/18 07:00 Pulse Rate 74 06/05/18 07:00 Respiratory Rate 18 06/05/18 09:00 Blood Pressure 153/88 06/05/18 07:00 O2 Sat by Pulse Oximetry (%) 98 06/05/18 09:00 Constitutional: Yes: No Distress Eyes: Yes: Conjunctiva Clear Cardiovascular: Yes: Regular Rate and Rhythm, S1, S2 Respiratory: Yes: CTA Bilaterally Gastrointestinal: Yes: Normal Bowel Sounds, Soft. No: Tenderness Labs: CBC, BMP 06/05/18 05:58 06/05/18 05:58 INR, PTT INR 0.99 (0.83-1.09) 06/02/18 05:20 Assessment/Plan CLINICAL PRESENTATION C/W LI TOXICITY CLINICALLY IMPROVED OBTAIN REPEAT C/S , CXR OFF ANTIBIOTICS FOR RECCURENT TEMP NEUROLOGY FOLLOW UP
--- NOTE | 2018-06-05 14:35 | CON.PSY ---
Psychiatry Consult Chief Complaint: 27 year old severly ID and SCizoaffective Disorder admitted with [place] TOxicity of severe nature Serum Levels of 4.0. Patient seen for psych eval. On Thorazine and trazadone. Depakote. Symptoms: reports: Excessive Energy, Aggressivity, Disorganized/Disruptive Thoughts - Previous Psychiatric Treatment Outpatient: Less than 6 mos ago Inpatient: None - Previous Substance Abuse Treatment Outpatient: None Inpatient: None - Reason for Previous Treatment Reason for Previous Treatment: Psychotic Episode - Current Medications Current Medications: Active Medications Acetaminophen (Tylenol -) 650 mg PO Q6H PRN PRN Reason: Fever Or Pain Last Admin: 06/03/18 19:54 Dose: 650 mg Divalproex Sodium (Depakote -) 500 mg PO BID [facility] Last Admin: 06/05/18 10:04 Dose: 500 mg Sodium Chloride (1/2 Normal Saline) 1,000 mls @ 75 mls/hr IV ASDIR [facility] Last Admin: 06/04/18 22:21 Dose: 75 mls/hr Insulin Aspart (Novolog Vial Sliding Scale -) 1 vial SQ ACHS [facility]; Protocol Last Admin: 06/05/18 11:34 Dose: Not Given Topiramate (Topamax -) 200 mg PO BID [facility] Last Admin: 06/05/18 10:04 Dose: 200 mg - Allergies Allergies: Allergies Allergy/AdvReac Type Severity Reaction Status Date / Time No Known Allergies Allergy Verified 06/01/18 19:26 - Current Living Status Usual Living Arrangement: Long Term - Current Mental Status Evaluation Appearance: Disheveled Attitude: Belligerent - Affect Affect: Labile Appropriateness: Not Appropriate - Mood Mood: Irritable - Speech/Language Expressive: Delayed - Psychomotor Activity Psychomotor Activity: Hyperactive - Thought Process Thought Process: Circumstantial - Thought Content Hallucinations: Absent Delusions: Absent - Self Perception Self Perception: No Impairment - Cognition Attention: Diminished Memory, Immediate Recall: Impaired Memory, Short Term: 1/3 Memory, Remote with Promptin/3 - Insight Insight: Impaired - Impulse Control Impulse Control: Severly Impaired - Suicidal Ideation Suicidal Ideation: No - Homicidal Ideation Homicidal Ideation: No Assessment/Plan 1) Restart Thorazine 200mg po bid. 2) continue with rest of Psych meds.
[2018-06-05 15:59] VITALS: BP 152/79
--- NOTE | 2018-06-05 16:25 | PN ---
Progress Note, Physician History of Present Illness: Pt seen and examined at bedside. He is acting more like himself. - Current Medication List Current Medications: Active Medications Acetaminophen (Tylenol -) 650 mg PO Q6H PRN PRN Reason: Fever Or Pain Last Admin: 06/03/18 19:54 Dose: 650 mg Chlorpromazine HCl (Thorazine -) 200 mg PO BID [facility] Divalproex Sodium (Depakote -) 500 mg PO BID [facility] Last Admin: 06/05/18 10:04 Dose: 500 mg Sodium Chloride (1/2 Normal Saline) 1,000 mls @ 75 mls/hr IV ASDIR [facility] Last Admin: 06/04/18 22:21 Dose: 75 mls/hr Insulin Aspart (Novolog Vial Sliding Scale -) 1 vial SQ ACHS [facility]; Protocol Last Admin: 06/05/18 11:34 Dose: Not Given Topiramate (Topamax -) 200 mg PO BID [facility] Last Admin: 06/05/18 10:04 Dose: 200 mg - Objective Vital Signs: Vital Signs Temperature 97.9 F 06/05/18 13:57 Pulse Rate 100 H 06/05/18 13:57 Respiratory Rate 16 06/05/18 13:57 Blood Pressure 152/79 06/05/18 13:57 O2 Sat by Pulse Oximetry (%) 98 06/05/18 09:00 Constitutional: Yes: Calm Eyes: Yes: Conjunctiva Clear HENT: Yes: Atraumatic Neck: Yes: Supple Cardiovascular: Yes: S1, S2 Respiratory: Yes: CTA Bilaterally Gastrointestinal: Yes: Normal Bowel Sounds, Soft Genitourinary: Yes: Incontinence Edema: No Neurological: Yes: Confusion, Pre-Existing Deficit Labs: CBC, BMP 06/05/18 05:58 06/05/18 05:58 INR, PTT INR 0.99 (0.83-1.09) 06/02/18 05:20 Problem List - Problems (1) ALYSSA (acute kidney injury) Code(s): N17.9 - ACUTE KIDNEY FAILURE, UNSPECIFIED (2) Hyperkalemia Code(s): E87.5 - HYPERKALEMIA (3) [place] toxicity Code(s): T56.891A - TOXIC EFFECT OF OTH METALS, ACCIDENTAL (UNINTENTIONAL), INIT (4) Diabetes mellitus Code(s): E11.9 - TYPE 2 DIABETES MELLITUS WITHOUT COMPLICATIONS (5) Altered mental status Code(s): R41.82 - ALTERED MENTAL STATUS, UNSPECIFIED Assessment/Plan Current Medications Generic Name Dose Route Start Last Admin Trade Name Edgar PRN Reason Stop Dose Admin Acetaminophen 650 mg 06/03/18 19:46 06/03/18 19:54 Tylenol - PO 650 mg Q6H PRN Administration Fever Or Pain Chlorpromazine HCl 200 mg 06/05/18 22:00 Thorazine - PO BID [facility] Divalproex Sodium 500 mg 06/04/18 10:00 06/05/18 10:04 Depakote - PO 500 mg BID [facility] Administration Sodium Chloride 1,000 mls @ 75 mls/hr 06/04/18 13:58 06/04/18 22:21 1/2 Normal Saline IV 75 mls/hr ASDIR [facility] Administration Insulin Aspart 1 vial 06/04/18 11:00 06/05/18 11:34 Novolog Vial Sliding Scale - SQ Not Given ACHS [facility] Protocol Topiramate 200 mg 06/04/18 10:00 06/05/18 10:04 Topamax - PO 200 mg BID [facility] Administration Laboratory Tests 06/01/18 06/03/18 06/04/18 20:50 12:45 15:45 [place] 4.0 H* 2.0 H* Pending Impression 1. 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 hyperkalemia 3. lithium toxicity 4. DM 5. autism 6. impulse control disorder 7. altered mental status Plan - renal function improved - follow lithium level - can decrease fluids once he is eating and drinking - avoid nsaids - avoid nephrotoxins - potassium is improved - will follow PRN
--- NOTE | 2018-06-05 16:54 | DS ---
Physical Exam: SUBJECTIVE: Patient seen and examined at bedside this morning. Patient afebrile overnight. Patient is more alert, and conservative today. OBJECTIVE: Vital Signs Period Temp Pulse Resp BP Sys/Schwartz Pulse Ox Last 24 Hr 97.9 F-98.3 F 68-100 16-18 141-153/79-88 98-98 PHYSICAL EXAM GENERAL: The patient is awake, following commands. No acute distress. HEAD: Normocephalic, atraumatic. No nuchal rigidity. Negative Kernig, Brudzinsky sign. EYES: PERRL, extraocular movements intact, sclera anicteric. ENT: Oropharynx clear without exudates, dry mucous membranes. NECK: Supple without lymphadenopathy LUNGS: Breath sounds equal, clear to auscultation bilaterally, no wheezes, no crackles, no accessory muscle use. HEART: Regular rate and rhythm, S1, S2 without murmur, rub or gallop. ABDOMEN: Obese. Soft, nontender to light and deep palpation, nondistended. Normoactive bowel sounds, X4 quadrants. No guarding, no rebound tenderness. EXTREMITIES: 2+ radial, dorsalis pedis pulses bilaterally. Warm, well-perfused, no lower extremity edema bilaterally. NEUROLOGICAL: Patient freely moves all 4 extremities, strength 5/5 bilateral upper and lower extremities. No gross focal deficits. SKIN: Warm, dry. LABS Laboratory Results - last 24 hr 06/04/18 06/04/18 06/05/18 17:19 22:17 05:58 WBC 12.0 H RBC 4.54 Hgb 13.0 Hct 38.9 MCV 85.7 MCH 28.6 MCHC 33.4 RDW 14.4 Plt Count 307 MPV 7.2 L Sodium Potassium Chloride Carbon Dioxide Anion Gap BUN Creatinine Creat Clearance w eGFR POC Glucometer 92 125 Random Glucose Calcium Total Bilirubin AST ALT Alkaline Phosphatase Total Protein Albumin 06/05/18 06/05/18 06/05/18 05:58 06:10 11:42 WBC RBC Hgb Hct MCV MCH MCHC RDW Plt Count MPV Sodium 145 Potassium 4.0 Chloride 117 H Carbon Dioxide 20 L Anion Gap 8 BUN 9 Creatinine 1.3 Creat Clearance w eGFR > 60 POC Glucometer 98 119 Random Glucose 113 H Calcium 8.8 Total Bilirubin 0.5 AST 22 ALT 29 Alkaline Phosphatase 115 Total Protein 6.7 Albumin 3.4 06/05/18 16:31 WBC RBC Hgb Hct MCV MCH MCHC RDW Plt Count MPV Sodium Potassium Chloride Carbon Dioxide Anion Gap BUN Creatinine Creat Clearance w eGFR POC Glucometer 88 Random Glucose Calcium Total Bilirubin AST ALT Alkaline Phosphatase Total Protein Albumin HOSPITAL COURSE: Date of Admission:06/02/18 Date of Discharge: 06/05/18 Patient is a 27 year old male with history of autism, diabetes mellitus, presents from [facility] with complaint of lethargy ongoing for past 5 days prior to presentation. Patient was evaluated by infectious disease physician, and neurologist for concern of meningitis, and started on Rocephin. Lumbar puncture was attempted, however patient was agitated and did not tolerate the procedure. Home Depakote was continued, Topamax dose reduced to 200mg PO BID; [place], Trazodone, and Chlorpromazine were held. [place] level at admission was noted to be 4.0. Patient was evaluated by mid level java developer who discussed option of hemodialysis with patient's family, who decided to wait for repeat level as they were concerned he would not be able to tolerate hemodialysis. Repeat [place] level was 2.0. After discussion with Nephrology, Neurology and Infectious Disease, patient's clinical picture was more consistent with supratherapeutic dose of heme medications [place] and Topamax, than menigitis; Rocephin was discontinued. Patient improved clinically, and was evaluated by psychiatrist who discussed reinstating his psychiatric medications. Patient was discharged back to his [facility], to follow up with primary care physician, neurologist, psychiatrist, and mid level java developer. Home medications reinstated except for [place] which was held, pending discussion with his outpatient psychiatrist , and primary care physician, and Topamax level reduced to 200mg PO daily. Will call with final [place] level once obtained from laboratory. Minutes to complete discharge: 45 Discharge Summary Reason For Visit: ALTERED MENTAL,BODY PAINS Current Active Problems NAZ (acute kidney injury) (Acute) Altered mental status (Acute) Diabetes mellitus (Acute) Hyperkalemia (Acute) [place] toxicity (Acute) Condition: Stable - Instructions Diet, Activity, Other Instructions: Hospital course: You were admitted to hospital with lethargy, and altered mental status. You were evaluated by neurologist, psychiatrist, mid level java developer, and infectious disease physician Your [place] level was noted to be elevated, and we held the medication during your hospitalization. Medicine recommendations: We have held your [place] while you were hospitalized as the level was dangerously elevated (4.0- decreased to 2.0 while hospitalized). We will call with a finial [place] level on Friday. Discuss reinstating this medication with your primary care physician, neurologist, and psychiatrist. Your Topamax dose was decreased to 200m every 12 hours. Begin taking the medication at this new dosage. Continue taking the rest of your home medications as directed. Follow up recommendations Follow up with your primary care physician within two- three days after discharge. Follow up with your neurologist within two- three days after discharge. A referral to Dr. Valadez has been provided. Follow up with your psychiatrist within one week after discharge. A referral to Dr. Sorensen has been provided Follow up with your mid level java developer within one week of discharge. A referral to Dr. Kat has been provided. Return to the nearest Emergency Department if you experience worsening symptoms , fevers, chills, shortness of breath, chest pain, palpitations, abdominal pain , nausea, vomiting. Referrals: Luis Valadez MD [Staff Physician] - Michael Sorensen MD [Staff Physician] - Vick Kat MD [Staff Physician] - Disposition: [facility]ACILITY - Home Medications Comprehensive Discharge Medication List: Ambulatory Orders Chlorpromazine HCl 200 mg PO BID 06/02/18 Divalproex [Depakote -] 500 mg PO BID 06/02/18 Metformin HCl [Metformin HCl ER] 500 mg PO DAILY 06/02/18 traZODone HCL [Trazodone HCl] 100 mg PO HS 06/02/18 Topiramate [Topamax -] 200 mg PO BID 30 Days #120 tablet 06/05/18 This patient is new to me today: No Emergency Visit: Yes ED Registration Date: 06/02/18 Care time: The patient presented to the Emergency Department on the above date and was hospitalized for further evaluation of their emergent condition. Critical Care patient: No - Discharge Referral Referred to [facility] Med P.C.: No
[2018-06-05] MEDS: SODIUM CHLORIDE 0.45% 1,000 ML IV SCH (17:43)
--- NOTE | 2018-06-05 17:45 | PN ---
Progress Note (short form) - Note Progress Note: 27 year old male history of Autism, behavior disorder, DM. He lives in a residential, he has not been participating in group activity. His care team assistant denies any high grade fever, He was complaining of headahce. Patient found to have high wbc, and he has spinal surgery done10 years ago and has hard burks in spine for scoliosis. Patient is seeing psychiatrist for behavior disorder. His depaktoe was increased from 250 mg po bid recently due to insomnia. Patient also takes Li and Topamax. I spoke to two sister at bedside and healthcare marketer. [place] is less lethargic and more awake and He is not back to baseline. Spinal tap could not be done and ID also felt , unlikley to be meningitis and Abx were stopped. Serum Li coming down. Spoke to resident and team , and seem he is back to normal self. NEUROLOGICAL EXAMINATION Alert follow command, agitation no neck stiffness no face asymmetry, pupils reactive moving all extremity CT head is normal spinal tap could not attempted due to agitation, Abx were stopped on Jun 03 by ID , as meningitis is less likley Assessment/Plan 27 year old male history of Autism, spinal surgery for scoliosis. Patient came with lethargy and agitation . Patient was on very high dose of Topamax 900 mgp o bid, depakote 500 mg po bid and Li. Mental status change seems to be due to Li AND Topamax toxicity. Plan:Agree with continue topamax 200 mg po bid and depakote 500 mg po bid - suggest psych opinion regarding managemnet of Li and Topamax ( 900 mg po bid) or further management . Patient is being discharged, and recommend to follow with his regular psychiatrist for retirement management of his medicaiton. Thanking you so much Luis Valadez MD
[2018-06-05 17:51] VITALS: PULSE 102; TEMP 98.7
[2018-06-05] MEDS ORDERED: chlorproMAZINE HCL 100 MG TABLET PO SCH (22:00)
--- NOTE | 2018-06-08 14:40 | PN ---
Progress Note (short form) - Note Progress Note: Followed up with mother (Ms. Christ Hanna) and sister (Keri) about final lithium level (1.3). Family aware that this was back to near normal ranges. Family reports that he is back to more of his baseline. Pt has not followed up with PCP due to weekend, however there is plans for visit this week.
== END 2018-06-05 19:35 | disposition home or self-care (01) | DRG 812 ==
LOC: JER 18:59 → JERBED 06-02 00:56 → J6S 06-02 12:32 → J4S 06-03 14:54
PROVIDERS: ADMIT Internal Medicine; ATTEND Internal Medicine
DX: T43.591A Poisoning by other antipsychotics and neuroleptics, accidental (unintentional), initial encounter (principal); G92 Toxic encephalopathy; N17.9 Acute kidney failure, unspecified; E11.22 Type 2 diabetes mellitus with diabetic chronic kidney disease; F25.9 Schizoaffective disorder, unspecified; E87.5 Hyperkalemia; E87.1 Hypo-osmolality and hyponatremia; M41.80 Other forms of scoliosis, site unspecified; M41.9 Scoliosis, unspecified; F84.0 Autistic disorder; Y92.230 Patient room in hospital as the place of occurrence of the external cause; F63.9 Impulse disorder, unspecified; E66.9 Obesity, unspecified; Z68.31 Body mass index [BMI] 31.0-31.9, adult; N18.9 Chronic kidney disease, unspecified; Z79.84 Long term (current) use of oral hypoglycemic drugs; E86.0 Dehydration; R80.9 Proteinuria, unspecified
CPT/HCPCS: 36415; 70450-TC; 71045-TC-FY; 80048; 80053; 80164; 80178; 80307; 81003; 81015; 82009; 82550; 82553; 82803; 82962; 83605; 83735; 84100; 84443; 85025; 85027; 85610; 85730; 87040; 87086; 87804; 93005; 93010; 99283-25; J7030

== ENCOUNTER 2018-07-05 11:42 | Emergency (ER) | payer OTHER ==
[2018-07-05 11:49] VITALS: BMI 33.5
[2018-07-05] MEDS ORDERED: ONDANSETRON 4 MG/2 ML VIAL IVPUSH ONE (12:20)
[2018-07-05] MEDS ORDERED: ONDANSETRON 4 MG/2 ML VIAL ONE (12:30)
[2018-07-05 12:48] LABS: BASO % 0.2 % (0-2.0); EOS % 0.6 % (0-4.5); HEMOGLOBIN 13.5 GM/dL (11.7-16.9); LYMPH % 3.2 % (8-40); MCH 29.3 pg (25.7-33.7); MCHC 33.7 g/dl (32.0-35.9); MEAN CELL VOLUME 86.9 fl (80-96); MEAN PLT VOLUME 7.3 fl (7.5-11.1); MONO % 7.5 % (3.8-10.2); NEUT % 88.5 % (42.8-82.8); PLATELET COUNT 210 K/MM3 (134-434); RBC 4.61 M/mm3 (4.00-5.60); RDW 15.4 % (11.9-15.9); WHITE BLOOD COUNT 11.8 K/mm3 (4.0-10.0)
--- NOTE | 2018-07-05 12:56 | PDOC ---
History of Present Illness - General Chief Complaint: Nausea/Vomiting Stated Complaint: VOMITING/BP PROBLEM Time Seen by Provider: 07/05/18 11:59 History Source: Other (Direct care worker) Exam Limitations: No Limitations - History of Present Illness Travel History: No Initial Comments: 07/05/18 12:50 27 y/o autistic male presents to the ED with c/o of upper abd pain and had 1 episode of vomiting after eating this am. As per worker pt has had no fever, recent illness, or recent travel. As per staff another client had a stomach bug a few days prior. Pt has had no recent change in meds or diet. Timing/Duration: reports: intermittent Abdominal Pain Onset Location: reports: epigastric Pain Radiation: reports: no radiation Activities at Onset: reports: none Aggravating Factors: improves with: None Alleviating Factors: improves with: None Past History - Travel Traveled outside of the country in the last 30 days: No Close contact w/someone who was outside of country & ill: No - Past Medical History Allergies/Adverse Reactions: Allergies Allergy/AdvReac Type Severity Reaction Status Date / Time No Known Allergies Allergy Verified 07/05/18 11:48 Home Medications: Ambulatory Orders Chlorpromazine HCl 200 mg PO BID 06/02/18 Divalproex [Depakote -] 500 mg PO BID 06/02/18 Metformin HCl [Metformin HCl ER] 500 mg PO DAILY 06/02/18 traZODone HCL [Trazodone HCl] 100 mg PO HS 06/02/18 Topiramate [Topamax -] 200 mg PO BID 30 Days #120 tablet 06/05/18 COPD: No Diabetes: Yes Psychiatric Problems: Yes - Surgical History Neurologic Surgery: Yes - Suicide/Smoking/Psychosocial Hx Smoking History: Never smoked Have you smoked in the past 12 months: No Hx Alcohol Use: No Drug/Substance Use Hx: No Patient Lives Alone: No Lives with/in: assisted living Review of Systems - Review of Systems Able to Perform ROS?: No Constitutional: No: Symptoms Reported HEENTM: No: Symptoms Reported Respiratory: No: Symptoms reported Cardiac (ROS): No: Symptoms Reported ABD/GI: Yes: Vomiting, Abdominal cramping. No: Poor Appetite : No: Symptoms Reported Musculoskeletal: No: Symptoms Reported *Physical Exam - Vital Signs Last Vital Signs Temp Pulse Resp BP Pulse Ox 98 F 130 H 18 140/97 99 07/05/18 11:46 07/05/18 11:46 07/05/18 11:46 07/05/18 11:46 07/05/18 11:46 - Physical Exam General Appearance: Yes: Nourished, Appropriately Dressed. No: Apparent Distress HEENT: positive: TMs Normal, Pharynx Normal Neck: positive: Supple Respiratory/Chest: positive: Lungs Clear, Normal Breath Sounds. negative: Respiratory Distress, Accessory Muscle Use Cardiovascular: positive: Regular Rhythm, Tachycardia. negative: Murmur Gastrointestinal/Abdominal: positive: Normal Bowel Sounds, Soft, Distended. negative: Guarding, Rebound, Tenderness, Hernia, Mass Extremity: positive: Normal Inspection Integumentary: positive: Normal Color, Warm, Moist Neurologic: positive: Normal Mood/Affect (anxious with minimal conversation), Motor Strength 5/5 (ambulatory) Moderate Sedation - Procedure Monitoring Vital Signs: Procedure Monitoring Vital Signs Temperature 98 F 07/05/18 11:46 Pulse Rate 130 H 07/05/18 11:46 Respiratory Rate 18 07/05/18 11:46 Blood Pressure 140/97 07/05/18 11:46 O2 Sat by Pulse Oximetry (%) 99 07/05/18 11:46 ED Treatment Course - LABORATORY CBC & Chemistry Diagram: 07/05/18 12:40 07/05/18 12:40 - RADIOLOGY Radiology Studies Ordered: Category Date Time Status KUB (KID UR & BLAD) [RAD] Stat Radiology 07/05/18 12:20 Ordered - Medications Given in the ED: ED Medications Discontinued Medications Generic Name Dose Route Start Last Admin Trade Name Kinq PRN Reason Stop Dose Admin Ondansetron HCl 4 mg 07/05/18 12:20 07/05/18 12:30 Zofran Injection IVPUSH 07/05/18 12:21 4 mg ONCE ONE Administration Medical Decision Making - Medical Decision Making 07/05/18 12:59 CC: abd pain since this am w./ vomiting x 1. Pt is autistic Exam: tachy, anxious, mild abd distention with no palpable mass/hernia or tenderness Plan: labs, urine, iv, iv zofran 07/05/18 13:48 Laboratory Tests 07/05/18 07/05/18 07/05/18 12:40 12:40 12:40 WBC 11.8 H Hgb 13.5 Hct 40.0 MPV 7.3 L Absolute Neuts (auto) 10.4 H Neutrophils % 88.5 H Lymphocytes % 3.2 L D Sodium 137 Potassium 3.6 Chloride 107 Carbon Dioxide 22 Anion Gap 8 BUN 20 H Creatinine 1.5 H Random Glucose 107 H Calcium 8.4 L Total Bilirubin 0.3 AST 12 L ALT 40 Alkaline Phosphatase 55 Total Protein 6.7 Albumin 3.4 Lipase 116 pt's hr at 116, temp 100.5, tylenol ordered, NS 1 liter ordered. Pt tolerating water. Awaiting urine 07/05/18 14:52 Laboratory Tests 07/05/18 14:36 Ur Specific [place] 1.006 L Urine Ketones Negative Urine Nitrite Negative Ur Leukocyte Esterase Negative 07/05/18 15:01 ABd xray shows stool filled colon. Otherwise study is -. pt will be d/c'd with zofran and recommendations to follow bland diet. *DC/Admit/Observation/Transfer Diagnosis at time of Disposition: Vomiting - Discharge Dispostion Disposition: HOME Condition at time of disposition: Improved - Referrals - Patient Instructions Printed Discharge Instructions: DI for Vomiting -- Adult Additional Instructions: Please give zofran as needed for nausea and vomiting. Give tylenol for fever. Rest and push fluids - Post Discharge Activity
[2018-07-05 13:29] LABS: ALBUMIN 3.4 g/dl (3.4-5.0); ALK PHOS 55 U/L (45-117); ANION GAP 8 MMOL/L (8-16); BILIRUBIN,TOTAL 0.3 mg/dL (0.2-1); BLOOD UREA NITROGEN 20 mg/dL (7-18); CALCIUM 8.4 mg/dL (8.5-10.1); CHLORIDE 107 mmol/L (98-107); CO2 22 mmol/L (21-32); CREATININE 1.5 mg/dL (0.55-1.3); GLUCOSE,RANDOM 107 mg/dL (74-106); POTASSIUM 3.6 mmol/L (3.5-5.1); SGOT/AST 12 U/L (15-37); SGPT/ALT 40 U/L (13-61); SODIUM 137 mmol/L (136-145); TOT PROT 6.7 g/dl (6.4-8.2)
[2018-07-05] MEDS ORDERED: ACETAMINOPHEN 325 MG TABLET (FP) PO ONE (13:47)
[2018-07-05] MEDS ORDERED: ACETAMINOPHEN 325 MG TABLET (FP) ONE (13:48)
[2018-07-05] MEDS ORDERED: SODIUM CHLORIDE 1,000 ML IV STA (13:57)
[2018-07-05 14:41] LABS: URINE APPEARANCE CLEAR; URINE BILIRUBIN NEGATIVE (<2.0 mg/dL); URINE COLOR LTYELLOW; URINE GLUCOSE (UA) NEGATIVE (NEGATIVE); URINE KETONE NEGATIVE (NEGATIVE); URINE LEUK ESTERASE NEGATIVE (NEGATIVE); URINE NITRITE NEGATIVE (NEGATIVE); URINE PROTEIN NEGATIVE (NEGATIVE); URINE UROBILINOGEN NEGATIVE mg/dL (0.2-1.0)
[2018-07-05 15:41] VITALS: BP 130/74; PULSE 117; TEMP 97.4
== END 2018-07-05 15:42 | disposition home or self-care (01) ==
LOC: JER 11:42
PROC: 3E0337Z Introduction of Electrolytic and Water Balance Substance into Peripheral Vein, Percutaneous Approach (ICD-10-PCS; principal; 2018-07-05)
PROC: 3E033GC Introduction of Other Therapeutic Substance into Peripheral Vein, Percutaneous Approach (ICD-10-PCS; 2018-07-05)
DX: R11.10 Vomiting, unspecified (principal); E11.9 Type 2 diabetes mellitus without complications; Z79.84 Long term (current) use of oral hypoglycemic drugs; F84.0 Autistic disorder
CPT/HCPCS: 36415; 74018-TC-FY; 80053; 81003; 83690; 85025; 87086; 87186; 96361; 96374; 99283-25; J7030